=== PATIENT | female | born 1925 | race Caucasian/White ===

== ENCOUNTER 2016-10-27 20:54 | Inpatient (IN) | payer MEDICARE ==
[2016-10-27] MEDS ORDERED: HYDROMORPHONE HCL 0.5 MG/0.5 ML SYRINGE ONE ×2 (22:24→23:56)
[2016-10-27] MEDS ORDERED: ONDANSETRON 4 MG/2ML 2 ML VIAL ONE (22:24)
[2016-10-27 22:58] LABS: ABSOLUTE NEUTROPHIL COUNT 6.3 K/mm3 (1.8-7.7); BASO % 0.5 % (0.2-1.0); EOS # 0.1 (0.0-0.5); EOS % 1.5 % (0.9-2.9); HEMATOCRIT 36.7 % (37.0-47.0); HEMOGLOBIN 12.3 gm/l (12.0-16.0); IMM NEUT% 0.2 % (0-1); LYMPH % 12.6 % (15-45); MEAN CELL VOLUME 95.3 fl (81.0-99.0); MEAN CORPUSCULAR HEMOGLOBIN 31.9 pg (27.0-31.0); MEAN CORPUSCULAR HGB CONC 33.5 g/dl (33.0-37.0); MEAN PLATELET VOLUME 9.9 fl (7.4-10.4); MONO # 0.6 (0.0-0.8); NEUT % 78.2 % (43-75); PLATELET COUNT 160 K/mm3 (130-400); RED CELL DISTRIBUTION WIDTH 12.8 % (11.5-14.5)
[2016-10-27 23:07] LABS: URINE BILIRUBIN NEGATIVE (NEGATIVE); URINE BLOOD NEGATIVE (NEGATIVE); URINE GLUCOSE (UA) NEGATIVE (NEGATIVE); URINE LEUKOCYTE ESTERASE NEGATIVE (NEGATIVE); URINE NITRITE NEGATIVE (NEGATIVE); URINE PROTEIN TRACE (NEGATIVE); URINE UROBILINOGEN NORMAL (0-1 mg/dl)
[2016-10-27 23:10] LABS: URINE APPEARANCE CLEAR; URINE COLOR DARK YELLOW
[2016-10-27 23:16] LABS: ALB/GLOB RATIO 1.6 (>1.0); ALBUMIN 3.8 gm/dL (3.5-5.7); CALCIUM 9.1 mg/dL (8.6-10.3)
[2016-10-27] MEDS ORDERED: SODIUM CHLORIDE 0.9% FLUSH 20 ML ONE (23:57)
[2016-10-27] MEDS ORDERED: MAGNESIUM HYDROXIDE 30 ML UDCUP PO PRN (23:58)
[2016-10-27] MEDS ORDERED: BISACODYL 5 MG TABLET.EC PO PRN (23:58)
[2016-10-27] MEDS ORDERED: MENTHOL/CETYLPYRD 1 EACH LOZENGE PO PRN (23:58)
[2016-10-27] MEDS ORDERED: BISACODYL 10 MG SUP PR PRN (23:58)
[2016-10-27] MEDS ORDERED: BLISTEX LIPSTICK 1 EACH TP PRN (23:58)
[2016-10-27] MEDS ORDERED: SODIUM CHLORIDE 0.9% 100 ML IV PRN (23:58)
[2016-10-28] MEDS ORDERED: HYDROMORPHONE HCL 0.5 MG/0.5 ML SYRINGE IV ONE (00:01)
[2016-10-28 00:16] VITALS: BMI 28.4
[2016-10-28] MEDS ORDERED: ONDANSETRON 4 MG/2ML 2 ML VIAL IV PRN (00:18)
[2016-10-28] MEDS ORDERED: PUMP TUBING ONE (00:26)
[2016-10-28] MEDS: D5 1/2NS with 20 mEq KCL 1,000 ML IV SCH ×2 (00:35→12:21)
[2016-10-28] MEDS: HYDROMORPHONE HCL 1 MG/ML SYRINGE IV PRN ×6 (00:36→21:31)
[2016-10-28 07:01] LABS: HEMATOCRIT 33.6 % (37.0-47.0); HEMOGLOBIN 11.3 gm/l (12.0-16.0); MEAN CELL VOLUME 96.3 fl (81.0-99.0); MEAN CORPUSCULAR HEMOGLOBIN 32.4 pg (27.0-31.0); MEAN CORPUSCULAR HGB CONC 33.6 g/dl (33.0-37.0); RED CELL DISTRIBUTION WIDTH 12.8 % (11.5-14.5)
--- NOTE | 2016-10-28 07:10 | CT ---
HEAD W/O CON History: Ground level fall with confusion. History of dementia. Comparison: None. Procedure: 1 mm axial images were obtained through the head from the vertex to the base of the skull without intravenous contrast. Stacked reconstructed 5 mm images were then obtained in the axial, coronal and sagittal planes. Findings: The lateral ventricles, cerebral sulci and sylvian fissures are prominent. No evidence of midline shift is seen. No mass or mass effect is identified. No evidence of intra or extra-axial fluid collections or hemorrhage is seen. There are periventricular deep white matter low-attenuation changes observed. The basilar cisterns are uneffaced. The posterior fossa structures are unremarkable. There appear to be postsurgical changes of the right ethmoid and maxillary sinuses. No acute osseous abnormalities are visualized. Impression: 1. No findings of acute intracranial hemorrhage. 2. Diffuse cerebral atrophy. 3. Periventricular deep white matter low-attenuation changes most consistent with small vessel ischemia considering patient age. 4. Postsurgical changes involving the right ethmoid and maxillary sinuses. The findings were called to the emergency room at 2209 hours, 10/27/2016, by [facility] radiology.
--- NOTE | 2016-10-28 07:10 | RAD ---
CHEST-AP BEDSIDE HISTORY: Ground-level fall with femur fracture. COMPARISONS: 07/05/2013. FINDINGS: There is evidence of prior median sternotomy. The heart size is normal for technique. No focal infiltrate, effusion or pneumothorax is seen. The hilar and mediastinal structures are stable. IMPRESSION: 1. Prior median sternotomy. 2. No active intrathoracic process.
--- NOTE | 2016-10-28 07:12 | RAD ---
HIP - LEFT 2 VW + AP PELVIS HISTORY: Ground-level fall. COMPARISONS: None. FINDINGS: An AP view of the pelvis was performed with AP and crosstable lateral views of the left hip demonstrating prior pinning of both proximal femurs. The osseous pelvis appears to be grossly intact. The sacrum and sacroiliac joints are unremarkable. Note is made of a spiral fracture of the midportion of the visualized left femur. Atherosclerotic vascular calcification is noted. IMPRESSION: 1. A spiral fracture of the visualized mid left femoral diaphysis. 2. Postsurgical changes of prior pinning of both proximal femurs. 3. Atherosclerotic vascular calcification.
--- NOTE | 2016-10-28 07:13 | RAD ---
FEMUR LEFT HISTORY: Ground-level fall. COMPARISONS: 06/11/2012. FINDINGS: AP and lateral views of the left femur demonstrate evidence of a spiral fracture of the mid to distal femoral diaphysis. There is minimal displacement identified. No significant angulation is observed. The soft tissue structures are appropriate. Atherosclerotic vascular calcification is incidentally seen. IMPRESSION: 1. A minimally displaced spiral fracture of the mid to distal left femoral diaphysis.
--- NOTE | 2016-10-28 07:14 | RAD ---
HUMERUS LEFT HISTORY: Ground level fall with left arm pain. COMPARISONS: None. FINDINGS: 2 views of the left humerus were performed demonstrating grossly intact osseous structures. The proximal and distal joint spaces are well-maintained. The glenohumeral alignment appears to be appropriate. No focal soft tissue abnormalities are seen. IMPRESSION: 1. Negative views of the left humerus.
[2016-10-28 07:15] LABS: INR 1.05
[2016-10-28 07:24] LABS: CALCIUM 8.6 mg/dL (8.6-10.3)
--- NOTE | 2016-10-28 07:24 | HP ---
Elayne Booker [id number] CHIEF COMPLAINT: Leg pain after fall. HISTORY OF PRESENT ILLNESS: The patient is an 89-year-old female who is reported to have fallen down stairs. She was noted to have a femur fracture of the mid shaft. She normally can walk down the [place], but this time was going down the stairs at the assisted living facility at [facility] in [place]. No other significant pain complaints other than the leg at this time. No special reason for the fall identified such as syncope or other obvious cause. PAST MEDICAL HISTORY: Remarkable for dementia although, she talks well and she normally can walk some. She has a history of dyslipidemia on Lipitor, osteopenia on Alendronate, history of vitamin D deficiency on replacement. She has had a prior history of left atrial thrombus/myxoma and was actually transferred to tertiary care facility for surgery. She underwent removal in 2012. She has had a prior history of diastolic congestive heart failure. She also had pulmonary hypertension on an echo back in 2012. She has also had a prolapsed rectum and is seeing a surgeon about this. She self reduces this, but the surgeon had recommended they move to an assisted living facility as the surgeon felt she needed more help at home. PAST SURGICAL HISTORY: Remarkable for left hip open reduction internal fixation 2011, right hip, 2003 sinus surgery and nasal polyp surgery, cataract surgery, coronary artery bypass graft and resection of myxoma and some type of spinal stenosis treatment. ALLERGIES: LISTED ARICEPT WHICH CAUSED NIGHMARES FOR HER. MEDICATIONS: Taken from the list at [facility] show: 1. Acetaminophen 650 mg by mouth every 4 hours as needed. 2. Alendronate 70 mg by mouth weekly. 3. Aspirin 81 mg daily. 4. Atorvastatin 40 mg daily. 5. Bisacodyl 1 by mouth daily as needed. 6. Loperamide 2 mg as needed. 7. Gaviscon or Mylanta 3 mL by mouth every 2 hours as needed. 8. [id number] 30 mL by mouth daily as needed. 9. Metoprolol tartrate 12.5 mg by mouth twice daily. 10. Multivitamin 1 by mouth daily. 11. Sertraline 25 mg at bedtime. 12. Vitamin D 3000 units daily. SOCIAL HISTORY: She is at [facility] for the last two weeks. She was previously at her home by herself [place]. She is . She does not smoke. No alcohol. Identifies at [employer] [facility] [employer]. She is not a . FAMILY HISTORY: Father at 96 of heart disease. Mom at age 80 of dementia. Four kids, one son of myocardial infarction at age 42. REVIEW OF SYSTEMS: Eyes okay, except for glasses. Ears are okay. Nose is okay. She can have come occasional nasal drainage and sniffles. Mouth and teeth are okay. Neck is okay. No breathing complaints. No heart complaints since her surgery. Stomach is okay. No breast complaints. She has had the rectal prolapse. The emergency room had mentioned a possible concern for urinary tract infection and placement of the urinary catheter. She has had no vaginal discharge or complaints. Leg is painful in the thigh on the left. Arms are okay. Memory is poor. She has dementia, but is otherwise conversant and talks well. She has had a previous do not resuscitate order and family concurs with this at this time. PHYSICAL EXAMINATION: GENERAL: Uncomfortable female. VITAL SIGNS: Blood pressure 155/64, respirations 20, pulse 76, temperature 98.6, 96% saturation on room air. HEENT: Head is normocephalic, atraumatic and is nontender to palpation. No bleeding is evident. Eyes are unremarkable. Ears are normal. Nose is normal. Mouth is normal with good dentition. NECK: Nontender. No crepitants noted. LUNGS: Clear to auscultation bilaterally. CHEST: Midline incision. HEART: Regular rate and rhythm without murmur. ABDOMEN: Soft, nontender, nondistended. Bowel sounds are normal. No rebound, no guarding. GENITOURINARY: Riddle in and draining yellow urine. EXTREMITIES: Left thigh is tender and somewhat swollen, she is quite uncomfortable with this. Right is unremarkable. Knees are unremarkable bilaterally. Ankles and feet are normal. Good pulses are noted. Good capillary refill noted. Hands are grossly unremarkable for age. NEUROLOGIC: Dementia shows poor memory, but patient is very conversant. LABORATORY DATA: White count 8.1, hemoglobin 12.3, platelets 160. Sodium 139, potassium 4.2, chloride 105, CO2 25, BUN 31, creatinine 1.2, glucose 128, calcium 9.1. LFT's are normal. Urinalysis specific gravity 1.020, 1+ ketones, otherwise negative. DIAGNOSTICS: EKG 72 beats per minute, right bundle branch block, left anterior fascicular block, QRS is 146 milliseconds, axis -50, QTC 488. Portable chest x-ray shows cardiomegaly, previous sternotomy, but otherwise no acute changes. Humerus on preliminary review appears to be negative without fracture. CT of head shows no intracranial hemorrhage, mass effect, or edema, no acute cortical stroke evidence, periventricular small vessel ischemic changes, paranasal sinus mucosal thickening, evidence of surgical changes on the right nasal turbinate to the ethmoid air cells. Femur shows a oblique mid shaft fracture and a previous pinning of hip bilaterally. ASSESSMENT AND PLAN: 1. Fracture of shaft of left femur, previously ambulatory. Appreciate orthopedic input and anticipate that patient's family and Dr. Johnson would like to proceed with repair. 2. Dementia. Patient had been living semi-independently two week ago. Patient is conversant, but memory appears to be poor. She was able to express that her leg hurts. 3. History of atrial myxoma status post excision with bypass several years ago. We will be checking troponin and a BNP although, she clinically appears to be stable in this regard. 4. History of pulmonary hypertension on previous echocardiogram. No more recent evaluations available since surgery. 5. Previous history of delirium after cardiac surgery. We will try to be cautious with medications. 6. Do not resuscitate status. Reviewed with patient's family today. 7. Venous thrombosis prophylaxis mechanical. 8. History reported of rectal prolapse. We will work to keep stools soft. 9. Osteoporosis. Anticipate follow up as an outpatient. 10. Hypertension. We will continue on metoprolol at this time. JOB: [id number] CC: Dr. Muñoz at [facility] Dr. Johnson
[2016-10-28] MEDS ORDERED: CEFAZOLIN SODIUM 2 GRAM PREMIX 2 G in Premix (D5W) 100 ml 1 EACH IV PRN (08:02)
--- NOTE | 2016-10-28 08:02 | PDOC43 ---
- Subjective Subjective: Reports Pain Tolerable (PT sleeping. Any motion of the patient's left femur is painful), Denies Chest Pain, Denies Shortness of Breath, Denies Nausea, Denies Vomiting - Objective Vital Signs Temperature 98.0 F 10/28/16 03:58 Pulse Rate 72 10/28/16 03:58 Respiratory Rate 18 10/28/16 04:38 Blood Pressure 144/70 10/28/16 03:58 O2 Saturation by Pulse Oximetry 94 10/28/16 03:58 Oxygen Delivery Method Room Air Oxygen Flow Rate 0 Laboratory 10/28/16 06:30 10/28/16 06:30 10/28/16 10/27/16 06:30 22:40 RBC 3.49 L 3.85 L MCH 32.4 H 31.9 H BUN 31 H 31 H Estimated GFR 39 L 42 L B-Natriuretic Peptide 273 H Total Protein 6.2 L Active Medication Orders Category Date Time Status Bisacodyl [Dulcolax] Med 10/27/16 23:58 Active 10 mg ME DAILY PRN Bisacodyl [Dulcolax] Med 10/27/16 23:58 Active 5 mg PO DAILY PRN D5 1/2NS with 20 mEq KCL [D51/2NS with 20 mEq KCL] 1, Med 10/27/16 23:45 Active 000 ml IV 75 mls/hr Docusate Sodium [Colace] Med 10/28/16 09:00 Active 100 mg PO BID Hydromorphone HCl [Dilaudid] Med 10/28/16 00:18 Active 0.5 - 1 mg IV Q2H PRN Lactulose [Enulose] Med 10/29/16 09:00 Active 10 g PO DAILY Lip [place] [Blistex] Med 10/27/16 23:58 Active 1 each TP PRN PRN Magnesium Hydroxide [Milk of Magnesia] Med 10/27/16 23:58 Active 30 ml PO DAILY PRN Menthol/Cetylpyridinium [Cepacol] Med 10/27/16 23:58 Active 1 each PO PRN PRN Metoprolol Tartrate [Lopressor] Med 10/28/16 09:00 Active 12.5 mg PO BID Ondansetron 4 mg/2ml Vial [Zofran] Med 10/28/16 00:18 Active 4 mg IV Q4H PRN Polyethylene Glycol 3350 [Miralax] Med 10/29/16 09:00 Active 17 g PO DAILY Sertraline HCl [Zoloft] Med 10/28/16 21:00 Active 25 mg PO BEDTIME Sodium Chloride 0.9% 100 ml Med 10/27/16 23:58 Active IV PRN Sodium Chloride 0.9% Flush [Normal Saline 10ml Flush] Med 10/28/16 00:01 Active 10 ml IV PRN PRN Sodium Chloride 0.9% Flush [Normal Saline 10ml Flush] Med 10/28/16 09:00 Active 10 ml IV Q8HR Intake and Output 10/26/16 10/27/16 10/28/16 23:59 23:59 23:59 Intake Total 470 Output Total 300 Balance 170 General: Afebrile - Left Lower Extremity Incision: Dressing Clean/Dry/Intact (Tender to touch by mid-shaft of left femur) , Erythema Motor: Extensor Hallucis Longus: 4/5, Tibialis Anterior: 4/5, Gastrocnemius: 4/5 , Peroneals: 4/5 Gross Sensation to Light Touch: Present: Deep Peroneal Nerve, Superficial Peroneal Nerve Capillary Refill: < 3 Seconds - Problems (1) Fracture, femur closed, shaft Status: Acute - Disposition HD#2 s/p admission with a left femoral shaft fracture with possible intra- articular extension NWB on the LLE. Possible surgery later today with a retrograde IMN. Pt may need screws. Waiting to speak with family about plans for surgery. Ancef communication instructor to the OR. Will hold anti-coagulation at this time.
--- NOTE | 2016-10-28 08:57 | CT ---
LOWER EXT W/O CON LT History: Evaluate femur fracture. Comparison: Plain film examination of the same day. Procedure: 1 mm axial images were obtained through the distal left femur without the use of oral or and venous contrast. Stacked reconstructed 3 mm images were then photographed in the axial, coronal and sagittal planes. Findings: Images of the distal femur and knee were obtained demonstrating evidence of a spiral fracture of the distal left femoral diaphysis with minimal displacement of the fracture components. However, there is a vertical component extending along the posterior cortical margin which demonstrates intra-articular extension to the adjacent knee joint centrally. An additional oblique component extends through the posterior margin of the lateral femoral condyle. There is a knee joint effusion identified. Atherosclerotic vascular calcification is noted as well. Impression: 1. A minimally displaced spiral distal left femoral diaphyseal fracture with a vertical intra-articular component extending to the central aspect of the knee joint along the posterior cortical margin, as well as an oblique distal component extending to the periphery of the lateral femoral condyle.
[2016-10-28] MEDS: DOCUSATE SODIUM 100 MG CAPSULE PO SCH ×2 (09:41→21:31)
[2016-10-28] MEDS: METOPROLOL TARTRATE 25 MG TABLET PO SCH ×2 (09:41→21:31)
--- NOTE | 2016-10-28 12:24 | PDOC43 ---
- Subjective Chief Complaint: fall with left femur fracture Patient lying comfortably at initiation of conversation she became extremely anxious, would hold her breath and says that she 'has been abandoned'. Has pain if she moves. She cannot recall the fall or events that brought her to the hospital. Subjective: Reports Pain Tolerable, Reports Other (patient not oriented to trust history) - Objective Vital Signs Temperature 98.0 F 10/28/16 11:17 Pulse Rate 76 10/28/16 11:17 Respiratory Rate 20 10/28/16 11:17 Blood Pressure 118/58 10/28/16 11:17 O2 Saturation by Pulse Oximetry 98 10/28/16 11:32 Oxygen Delivery Method Nasal Cannula Oxygen Flow Rate 2 Intake and Output 10/26/16 10/27/16 10/28/16 23:59 23:59 23:59 Intake Total 470 Output Total 300 Balance 170 General: Alert, Cooperative, Acute Distress, Other (anxious) HEENT: Atraumatic, Other (mucus membranes dry) Lungs: Clear to Auscultation Bilaterally, Normal Air Movement Cardiovascular: Regular Rate and Rhythm, Normal S1, Normal S2 Abdomen: Soft, Non-Distended, No Rigid, No Tenderness, No Rebounding Extremities: Cyanosis, Edema, Tenderness Neurological: Normal Speech Psych/Mental Status: Anxious Laboratory 10/28/16 06:30 10/28/16 06:30 10/28/16 10/27/16 06:30 22:40 RBC 3.49 L 3.85 L MCH 32.4 H 31.9 H BUN 31 H 31 H Estimated GFR 39 L 42 L B-Natriuretic Peptide 273 H Total Protein 6.2 L Current Medications: Current meds reviewed in EMR. - Problems: Assessment/Plan (1) Fracture, femur closed, shaft Qualifiers: Encounter type: initial encounter Fracture morphology: oblique Fracture alignment: nondisplaced Laterality: left Qualifier Code: ( S72.335A) Nondisplaced oblique fracture of shaft of left femur, initial encounter for closed fracture Status: Acute Assessment/Plan: Appreciate ortho's management. Pinning in OR today (2) Dementia Qualifiers: Dementia type: Alzheimer's disease Alzheimer's disease onset: unspecified onset Status: Acute Assessment/Plan: unknown if behavioral disturbances as patient new to us and highly anxious at this time. Will monitor closely (3) HLD (hyperlipidemia) Qualifiers: Hyperlipidemia type: mixed hyperlipidemia Qualifier Code: (E78.2) Mixed hyperlipidemia Status: Chronic Assessment/Plan: stable (4) Osteopenia Qualifiers: Osteopenia location: multiple sites Qualifier Code: (M85.89) Other specified disorders of bone density and structure, multiple sites Status: Chronic Assessment/Plan: contributing to fragility (5) Diastolic CHF Qualifiers: Congestive heart failure chronicity: chronic Qualifier Code: (I50.32) Chronic diastolic (congestive) heart failure Status: Chronic Assessment/Plan: slight bump of BNP on presentation, unknown if baseline. Monitor, continue medications (6) Pulmonary hypertension Status: Chronic Assessment/Plan: stable, monitor
[2016-10-28] MEDS ORDERED: QUETIAPINE FUMARATE 25 MG TABLET PO ONE (13:16)
[2016-10-28] MEDS ORDERED: LORAZEPAM 2 MG/ML 1ML SDV IV ONE ×2 (16:24→23:15)
[2016-10-28] MEDS ORDERED: SERTRALINE HCL 50 MG TABLET PO SCH (21:00)
[2016-10-28] MEDS: QUETIAPINE FUMARATE 25 MG TABLET PO SCH (23:03)
[2016-10-29] MEDS: QUETIAPINE FUMARATE 25 MG TABLET PO SCH ×2 (00:12→02:59)
[2016-10-29] MEDS: HYDROMORPHONE HCL 1 MG/ML SYRINGE IV PRN (02:58)
[2016-10-29] MEDS: D5 1/2NS with 20 mEq KCL 1,000 ML IV SCH (04:11)
[2016-10-29] MEDS ORDERED: LACTATED RINGERS 1,000 ML ONE (06:27)
[2016-10-29 06:50] LABS: BASO % 0.5 % (0.2-1.0); EOS # 0.2 (0.0-0.5); EOS % 2.7 % (0.9-2.9); HEMATOCRIT 29.5 % (37.0-47.0); HEMOGLOBIN 9.8 gm/l (12.0-16.0); IMM NEUT% 0.2 % (0-1); LYMPH # 1.3 (1.0-4.8); LYMPH % 15.2 % (15-45); MEAN CELL VOLUME 96.7 fl (81.0-99.0); MEAN CORPUSCULAR HEMOGLOBIN 32.1 pg (27.0-31.0); MEAN CORPUSCULAR HGB CONC 33.2 g/dl (33.0-37.0); MEAN PLATELET VOLUME 9.8 fl (7.4-10.4); MONO # 0.9 (0.0-0.8); MONO % 10.5 % (4-12); NEUT % 70.9 % (43-75); PLATELET COUNT 116 K/mm3 (130-400); RED CELL DISTRIBUTION WIDTH 12.8 % (11.5-14.5)
[2016-10-29] MEDS ORDERED: FENTANYL 100 MCG/2 ML VIAL ONE (07:14)
[2016-10-29 07:15] LABS: CALCIUM 8.2 mg/dL (8.6-10.3)
--- NOTE | 2016-10-29 07:26 | PDOC43 ---
- Subjective Subjective: Reports Pain Tolerable (Pt has a pain with any left leg motion), Denies Chest Pain, Denies Shortness of Breath, Denies Nausea, Denies Vomiting, Denies Fever - Objective Vital Signs Temperature 99.2 F 10/29/16 03:04 Pulse Rate 64 10/29/16 03:04 Respiratory Rate 18 10/29/16 04:26 Blood Pressure 135/56 10/29/16 03:04 O2 Saturation by Pulse Oximetry 100 10/29/16 03:04 Oxygen Delivery Method Nasal Cannula Oxygen Flow Rate 2 Laboratory 10/29/16 06:40 10/29/16 06:40 10/29/16 10/28/16 06:40 06:30 RBC 3.05 L MCH 32.1 H Anion Gap 7 L BUN 31 H Estimated GFR 47 L 39 L Calcium 8.2 L Active Medication Orders Category Date Time Status Bisacodyl [Dulcolax] Med 10/27/16 23:58 Active 10 mg RI DAILY PRN Bisacodyl [Dulcolax] Med 10/27/16 23:58 Active 5 mg PO DAILY PRN Cefazolin Sodium 2 Gram Premix [Ancef 2 Gram Premix] 2 Med 10/28/16 08:02 Active g Premix (D5W) 100 ml 1 each IV ON HOLD TO OR D5 1/2NS with 20 mEq KCL [D51/2NS with 20 mEq KCL] 1, Med 10/27/16 23:45 Active 000 ml IV 75 mls/hr Docusate Sodium [Colace] Med 10/28/16 09:00 Active 100 mg PO BID Hydromorphone HCl [Dilaudid] Med 10/28/16 00:18 Active 0.5 - 1 mg IV Q2H PRN Lactulose [Enulose] Med 10/29/16 09:00 Active 10 g PO DAILY Lip [place] [Blistex] Med 10/27/16 23:58 Active 1 each TP PRN PRN Magnesium Hydroxide [Milk of Magnesia] Med 10/27/16 23:58 Active 30 ml PO DAILY PRN Menthol/Cetylpyridinium [Cepacol] Med 10/27/16 23:58 Active 1 each PO PRN PRN Metoprolol Tartrate [Lopressor] Med 10/28/16 09:00 Active 12.5 mg PO BID Ondansetron 4 mg/2ml Vial [Zofran] Med 10/28/16 00:18 Active 4 mg IV Q4H PRN Polyethylene Glycol 3350 [Miralax] Med 10/29/16 09:00 Active 17 g PO DAILY Quetiapine Fumarate [Seroquel] Med 10/28/16 21:00 Active 12.5 - 25 mg PO BEDTIME Sertraline HCl [Zoloft] Med 10/28/16 21:00 Active 25 mg PO BEDTIME Sodium Chloride 0.9% 100 ml Med 10/27/16 23:58 Active IV PRN Sodium Chloride 0.9% Flush [Normal Saline 10ml Flush] Med 10/28/16 00:01 Active 10 ml IV PRN PRN Sodium Chloride 0.9% Flush [Normal Saline 10ml Flush] Med 10/28/16 09:00 Active 10 ml IV Q8HR Intake and Output 10/27/16 10/28/16 10/29/16 23:59 23:59 23:59 Intake Total 1323 1032 Output Total 550 235 Balance 773 797 General: Afebrile - Left Lower Extremity Motor: Extensor Hallucis Longus: 4/5, Tibialis Anterior: 4/5, Gastrocnemius: 4/5 Gross Sensation to Light Touch: Present: Deep Peroneal Nerve, Superficial Peroneal Nerve Capillary Refill: < 3 Seconds (Pt has pain with any left leg motion) - Problems (1) Fracture, femur closed, shaft Qualifiers: Encounter type: initial encounter Fracture morphology: oblique Fracture alignment: nondisplaced Laterality: left Qualifier Code: ( S72.335A) Nondisplaced oblique fracture of shaft of left femur, initial encounter for closed fracture Status: Acute - Disposition HD#3 s/p admission with a left femoral shaft fracture with possible intra- articular extension NWB on the LLE. Surgery today with veda-articular plate. Did speak with patient and family about surgery. Ancef long term care pharmacist to the OR. Will hold anti-coagulation at this time.
[2016-10-29] MEDS ORDERED: MIDAZOLAM HCL 1 MG/ML 2ML VIAL ONE ×2 (07:37→09:45)
[2016-10-29] MEDS ORDERED: CEFAZOLIN SODIUM 1,000 MG VIAL ONE (08:30)
[2016-10-29] MEDS ORDERED: BUPIVACAINE 0.75% SPINAL AMPUL 2 ML ONE (08:30)
[2016-10-29] MEDS ORDERED: SPINAL PROCEDURAL TRAY 1 EACH ONE (08:30)
[2016-10-29] MEDS ORDERED: LACTULOSE 20 G/30 ML UDCUP PO SCH (09:00)
[2016-10-29] MEDS ORDERED: POLYETHYLENE GLYCOL 3350 17 G POWD.SUSP PO SCH (09:00)
[2016-10-29] MEDS ORDERED: MIDAZOLAM HCL 5 MG/5 ML VIAL ONE (09:51)
[2016-10-29] MEDS ORDERED: NALOXONE HCL 0.4 MG/ML VIAL IV PRN (10:37)
[2016-10-29] MEDS ORDERED: ATROPINE SULFATE 0.4 MG/1 ML VIAL IV PRN (10:37)
[2016-10-29] MEDS ORDERED: MEPERIDINE 25 MG/ML SYRINGE IV PRN (10:37)
[2016-10-29] MEDS ORDERED: ONDANSETRON 4 MG/2ML 2 ML VIAL IV PRN ×3 (10:37→14:09)
[2016-10-29] MEDS ORDERED: MORPHINE SULFATE 4 MG/ML SYRINGE IV PRN ×2 (10:37→12:25)
[2016-10-29] MEDS ORDERED: LABETALOL HCL 5 MG/ML 20ML VIAL IV PRN (10:37)
[2016-10-29] MEDS ORDERED: PROMETHAZINE HCL 25 MG/ML VIAL IM PRN (10:37)
[2016-10-29] MEDS ORDERED: LACTATED RINGERS 1,000 ML IV SCH ×2 (10:45→12:06)
--- NOTE | 2016-10-29 11:14 | RAD ---
FEMUR LEFT HISTORY: Intraoperative fluoroscopy for ORIF COMPARISONS: CT lower extremity without contrast 10/28/2016 and plain films dating back to 617 FINDINGS: 8 overhead fluoroscopic images are provided for review. These images demonstrate intramedullary patricia placement with screw fixation across the patient's known femoral fracture. Study is limited with respect osseous detail given fluoroscopic technique. Fluoroscopy time: 224.4 seconds IMPRESSION: Intraoperative fluoroscopy for ORIF as above. Please see orthopedist note regarding the procedure for further details.
--- NOTE | 2016-10-29 11:23 | PCMBPN ---
Brief Post Op Note: Date of Procedure: 10/29/16 Preoperative Diagnosis: 1. left femoral shaft fracture with intra-articular extension Postoperative Diagnosis: 1. [Same] Procedure: left femoral shaft fracture with intra-articular extension ORIF with placement of a retrograde intramedullary nail Surgeon: Giovanni Johnson MD Assist: Zack MÁRQUEZ Anesthesia: Spinal Findings:Pt had a 1 x 3.5mm 75mm placed lateral to medial with a washer. placed a dean and nephew 34 x 11.5 retrograde nail placing 3 distal locking screws through the nail and 2 screws proximally 30mm and 35mm Condition: stable vitals, transferred to pacu Complications: None IV Fluids: 1600 mLs of LR Urine Output: mLs Estimated Blood Loss: 300 mLs Tourniquet Time: [N/A] Specimens: [N/A] Implants: Dean and Nephew retrograde nail Drains: [N/A] PLAN: Partial weighbearing on the right lower extremity with chai brace locked in extension for transfers. Ancef x 24 hours post-op. Lovenox for DVT prophylaxis. Will see if patient will use CPM post-op.
[2016-10-29] MEDS ORDERED: MORPHINE SULFATE 4 MG/ML SYRINGE ONE (11:31)
--- NOTE | 2016-10-29 11:56 | RAD ---
FEMUR LEFT, KNEE LEFT 1 OR 2 VIEWS HISTORY: Postop ORIF. COMPARISONS: Intraoperative films earlier on the same day and plain films dating back to 617 FINDINGS: AP and lateral views of the left femur with AP and lateral views of the left knee are obtained. Intramedullary patricia with screw placement is noted across the mid shaft femoral fracture. 3 partially threaded screws transfix the patient's femoral neck fracture. Hardware is intact without signs of failure or loosening. No new fracture or dislocation is noted. Limited assessment of the pelvis and hip are unremarkable. Overlying bandaging does limit assessment. Vascular calcifications are present. IMPRESSION: Satisfactory postoperative exam.
[2016-10-29] MEDS ORDERED: CALCIUM CARBONATE 500 MG TAB.CHEW PO PRN (12:06)
[2016-10-29] MEDS ORDERED: MORPHINE SULFATE 2 MG/ML SYRINGE IV PRN (12:06)
[2016-10-29] MEDS ORDERED: OXYCODONE HCL 5 MG TABLET PO PRN (12:06)
--- NOTE | 2016-10-29 14:17 | PDOC43 ---
- Subjective Chief Complaint: fall with left femur fracture Seen post-op at 1330. Somnolent but wakes enough to say she is in no pain. - Objective Vital Signs Temperature 98.8 F 10/29/16 13:13 Pulse Rate 91 10/29/16 13:13 Respiratory Rate 18 10/29/16 13:13 Blood Pressure 140/58 10/29/16 13:13 O2 Saturation by Pulse Oximetry 99 10/29/16 13:13 Oxygen Delivery Method Nasal Cannula Oxygen Flow Rate 3 Intake and Output 10/28/16 10/29/16 10/30/16 06:59 06:59 06:59 Intake Total 470 1885 Output Total 300 485 Balance 170 1400 General: No Acute Distress HEENT: Mucous membr. moist/pink Lungs: Other (course anteriorally) Cardiovascular: Regular Rate and Rhythm, Murmur (10/27) Abdomen: Soft, Normal Bowel Sounds, No Tenderness, No Masses Extremities: Normal Pulses, No Edema Skin: Normal Color Neurological: Other (sleeping) Laboratory 10/29/16 06:40 10/29/16 06:40 10/29/16 06:40 RBC 3.05 L MCH 32.1 H Anion Gap 7 L Estimated GFR 47 L Calcium 8.2 L Crossmatch See Detail Current Medications: Current meds reviewed in EMR. - Problems: Assessment/Plan (1) Fracture, femur closed, shaft Qualifiers: Encounter type: initial encounter Fracture morphology: oblique Fracture alignment: nondisplaced Laterality: left Qualifier Code: ( S72.335A) Nondisplaced oblique fracture of shaft of left femur, initial encounter for closed fracture Status: AcuteAssessment/Plan: S/P repair in OR 10/29/16. Care per orthopedics. (2) Acute blood loss anemia Status: AcuteAssessment/Plan: Due to fracture and expected to increase with surgery. Follow and transfuse if symptomatic. 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 (4) Diastolic CHF Qualifiers: Congestive heart failure chronicity: chronic Qualifier Code: (I50.32) Chronic diastolic (congestive) heart failure Status: ChronicAssessment/Plan : Chronic diagnosis associated with pulmonary HTN. (not [place]). Not on diuretics at home, follow closely and decrease fluid infusion. Suspect the single documented saturation of 83% was an error as it was two minutes after a normal saturation of 92% on Room Air. (5) Osteopenia Qualifiers: Osteopenia location: multiple sites Qualifier Code: (M85.89) Other specified disorders of bone density and structure, multiple sites Status: ChronicAssessment/Plan: With fragility fracture gives her the diagnosis of osteoporosis. Start Ca/Vit D , resume Alendronate (6) HLD (hyperlipidemia) Qualifiers: Hyperlipidemia type: mixed hyperlipidemia Qualifier Code: (E78.2) Mixed hyperlipidemia Status: ChronicAssessment/Plan: stable (7) CKD (chronic kidney disease) stage 3, GFR 30-59 ml/min Status: ChronicAssessment/Plan: stable, follow. (8) HTN (hypertension) Qualifiers: Hypertension type: essential hypertension Qualifier Code: (I10) Essential (primary) hypertension Status: ChronicAssessment/Plan: Well controlled, resume metoprolol. VTE Prophylaxis: Enoxaparin and mechanical Disposition: Likely SNF rehab in 2-3 days
[2016-10-29] MEDS: CALCIUM CARBONATE 600 MG/VITAMIN D3 400 UNIT/TABLET PO SCH ×2 (15:47→21:19)
[2016-10-29] MEDS: ACETAMINOPHEN 500 MG TABLET PO SCH ×3 (15:47→23:28)
[2016-10-29] MEDS: CEFAZOLIN SODIUM 2 GRAM DUPLEX 2 G in Premix (D5W) 50 ml 1 EACH IV SCH (16:15)
[2016-10-29] MEDS: MORPHINE SULFATE 2 MG/ML SYRINGE IV PRN ×3 (18:20→23:28)
[2016-10-29] MEDS: METOPROLOL TARTRATE 25 MG TABLET PO SCH ×2 (18:51→21:20)
[2016-10-29] MEDS: DOCUSATE SODIUM 100 MG CAPSULE PO SCH ×2 (18:51→21:19)
[2016-10-29] MEDS: SERTRALINE HCL 50 MG TABLET PO SCH (21:19)
[2016-10-29] MEDS: ASCORBIC ACID 500 MG TABLET PO SCH (21:19)
[2016-10-29] MEDS: OXYCODONE HCL 5 MG TABLET PO PRN (21:28)
[2016-10-30] MEDS: CEFAZOLIN SODIUM 2 GRAM DUPLEX 2 G in Premix (D5W) 50 ml 1 EACH IV SCH (00:04)
[2016-10-30] MEDS: MORPHINE SULFATE 2 MG/ML SYRINGE IV PRN ×5 (01:30→21:42)
[2016-10-30] MEDS: ACETAMINOPHEN 500 MG TABLET PO SCH ×3 (05:28→19:12)
[2016-10-30 06:32] LABS: HEMATOCRIT 26.9 % (37.0-47.0); HEMOGLOBIN 9.1 gm/l (12.0-16.0); MEAN CELL VOLUME 95.1 fl (81.0-99.0); MEAN CORPUSCULAR HEMOGLOBIN 32.2 pg (27.0-31.0); MEAN CORPUSCULAR HGB CONC 33.8 g/dl (33.0-37.0); RED CELL DISTRIBUTION WIDTH 12.7 % (11.5-14.5)
[2016-10-30 06:53] LABS: CALCIUM 8.2 mg/dL (8.6-10.3)
[2016-10-30] MEDS: CALCIUM CARBONATE 600 MG/VITAMIN D3 400 UNIT/TABLET PO SCH ×3 (09:34→20:38)
[2016-10-30] MEDS: ENOXAPARIN SODIUM 40 MG/0.4 ML SYRINGE SUB-Q SCH (09:34)
[2016-10-30] MEDS: VITAMIN D3 1,000 UNITS CAP.LIQ PO SCH (09:34)
[2016-10-30] MEDS: METOPROLOL TARTRATE 25 MG TABLET PO SCH ×2 (09:35→20:38)
[2016-10-30] MEDS: ATORVASTATIN CALCIUM 40 MG TABLET PO SCH (09:35)
[2016-10-30] MEDS: ASCORBIC ACID 500 MG TABLET PO SCH ×2 (09:35→20:38)
[2016-10-30] MEDS: MULTIVITAMINS 1 TAB TABLET PO SCH (09:35)
[2016-10-30] MEDS: OXYCODONE HCL 5 MG TABLET PO PRN ×3 (09:39→20:38)
[2016-10-30] MEDS: DOCUSATE SODIUM 100 MG CAPSULE PO SCH ×2 (10:42→20:39)
--- NOTE | 2016-10-30 13:24 | PDOC43 ---
- Subjective Chief Complaint: fall with left femur fracture Sleeping in chair after lunch. No reported c/o. - Objective Vital Signs Temperature 97.5 F 10/30/16 13:01 Pulse Rate 59 10/30/16 13:01 Respiratory Rate 17 10/30/16 13:01 Blood Pressure 123/52 10/30/16 13:01 O2 Saturation by Pulse Oximetry 91 10/30/16 13:01 Oxygen Delivery Method Room Air Oxygen Flow Rate 0 Intake and Output 10/29/16 10/30/16 10/31/16 06:59 06:59 06:59 Intake Total 1885 3757 Output Total 485 1375 Balance 1400 2382 General: No Acute Distress HEENT: Mucous membr. moist/pink Lungs: Clear to Auscultation Bilaterally Cardiovascular: Regular Rate and Rhythm Abdomen: Soft, Normal Bowel Sounds, No Tenderness, No Masses Extremities: Normal Pulses, No Edema Skin: Normal Color Laboratory 10/30/16 05:30 10/30/16 05:30 10/30/16 05:30 RBC 2.83 L MCH 32.2 H Estimated GFR 52 L Calcium 8.2 L Current Medications: Current meds reviewed in EMR. - Problems: Assessment/Plan (1) Fracture, femur closed, shaft Qualifiers: Encounter type: initial encounter Fracture morphology: oblique Fracture alignment: nondisplaced Laterality: left Qualifier Code: ( S72.335A) Nondisplaced oblique fracture of shaft of left femur, initial encounter for closed fracture Status: AcuteAssessment/Plan: S/P repair in OR 10/29/16. Care per orthopedics. (2) Acute blood loss anemia Status: AcuteAssessment/Plan: Due to fracture and expected to increase with surgery. Follow and transfuse if symptomatic. 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 (4) Diastolic CHF Qualifiers: Congestive heart failure chronicity: chronic Qualifier Code: (I50.32) Chronic diastolic (congestive) heart failure Status: ChronicAssessment/Plan : Chronic diagnosis associated with pulmonary HTN. (not [place]). Not on diuretics at home, follow closely and decrease fluid infusion. Suspect the single documented saturation of 83% was an error as it was two minutes after a normal saturation of 92% on Room Air. (5) Osteopenia Qualifiers: Osteopenia location: multiple sites Qualifier Code: (M85.89) Other specified disorders of bone density and structure, multiple sites Status: ChronicAssessment/Plan: With fragility fracture gives her the diagnosis of osteoporosis. Start Ca/Vit D , resume Alendronate (6) HLD (hyperlipidemia) Qualifiers: Hyperlipidemia type: mixed hyperlipidemia Qualifier Code: (E78.2) Mixed hyperlipidemia Status: ChronicAssessment/Plan: stable (7) CKD (chronic kidney disease) stage 3, GFR 30-59 ml/min Status: ChronicAssessment/Plan: stable, follow. (8) HTN (hypertension) Qualifiers: Hypertension type: essential hypertension Qualifier Code: (I10) Essential (primary) hypertension Status: ChronicAssessment/Plan: Well controlled, resume metoprolol. VTE Prophylaxis: Enoxaparin and mechanical Disposition: Likely SNF rehab in 2-3 days
--- NOTE | 2016-10-30 15:48 | OP ---
Elayne RANGEL : 1925 [id number] DATE OF PROCEDURE: October 29, 2016 PREOPERATIVE DIAGNOSES: Left femoral shaft fracture with intra-articular extension and intercondylar distal femoral split. POSTOPERATIVE DIAGNOSES: Left femoral shaft fracture with intra-articular extension and intercondylar distal femoral split. PROCEDURE: LEFT FEMORAL SHAFT FRACTURE WITH INTRA-ARTICULAR EXTENSION OPEN REDUCTION INTERNAL FIXATION WITH PLACEMENT OF A RETROGRADE INTRAMEDULLARY NAIL, AND PERCUTANEOUS FIXATION OF THE DISTAL FEMORAL INTERCONDYLAR DISTAL FEMORAL SPLIT. SURGEON: Giovanni Johnson M.D. INFORMATION SYSTEMS SECURITY DEVELOPER: Jorge Dixon P.A.-C. ANESTHESIA: Spinal. FINDINGS: The patient had a complicated fracture secondary to her intra-articular extension. This required a percutaneous fixation of this distal femoral split with a 3.5 mm 75 mm screw lag screw placed from lateral to medial, with the clamped in place I elected to place a 11.5mm x 34 cm retrograde intramedullary nail. This is a [employer] nail and two proximal screws. These were length 30 and 35 mm. CONDITION: Stable. The patient was transferred to the PACU with stable vital signs. COMPLICATIONS: None. INTRAVENOUS FLUIDS: 3100 mL of Lactated Ringer's. URINE OUTPUT: 100 mL ESTIMATED BLOOD LOSS: 300 mL SPECIMENS: N/A TOURNIQUET TIME: N/A IMPLANTS: The patient had one synthes 3.5 mm lag screw along with a [employer] retrograde nail measuring 34cm x 11.5mm. DRAINS: N/A PLAN: The patient will be partial weight bearing with the right lower extremity with the [place] brace locked in extension for transfers. IF she cannot tolerate these precautions, then she can be WBAT on the RLE. We will give her Ancef for 24 hours postoperatively, Lovenox for DVT prophylaxis and we will see if the patient can cooperate for using the CPM to help with the range of motion. INDICATIONS: The patient is an 89-year-old female with signs and symptoms consistent with femoral shaft fracture with intra-articular extension secondary to a fall. Because of the patient's baseline dementia, the patient's history as well as consent was done by her son who is her son who is her other healthcare proxy. I spoke to him about a number of different problems presented by the surgery. Because of her intra-articular fracture I told her that I may be able to place screws across her distal femur, however this may require a plating of the entire femur versus placing a nail. I told him that this decision would be made intra-articularly based on the status of her fracture and whether her bone quality would allow a nailing. I told him that my preference would be to place a nail, however I do worry about her compliance after surgery and would like to limit her weight bearing if that is possible. I talked to her about some of the risks in doing surgery with her age such as her risk of infection, bleeding, persistent pain, the fracture fixation failing, need for future surgery, stroke, myocardial infarction and even . They state that they understand these risks and were ready to begin. I told them that it is very common for an elderly person to be confused, after surgery, especially in the new environment. They understand this and are willing to accept for the surgery. PROCEDURE DESCRIPTION: After signing the consent form I signed, the patient's left leg with my initials and the word "yes." I spoke to the patient's family who makes medical decisions for her. After this, we were ready to bring her back to the operating room theater. The patient was brought from the preoperative area to the operating theater where she was placed on her side and the anesthesia team administered a spinal without difficulty or complication. Next, with spinal placed she was transferred to a radiolucent pain table and the patient having bump placed underneath her left hip so that her patella was facing the ceiling and not in external rotation. The patient then received some intravenous sedation. Next, we brought the C-arm in from side of the body to confirm that we could get appropriate x-rays of the of the intra-articular space as well as the fracture and proximally in the leg. The left lower extremity was then prepped and draped in sterile fashion, first with a chlorhexidine scrub and then paint. Drapes were used, splits were used proximally to drape out the groin. With the drapes in place we performed our final time out confirming that the left side was the correct side. I confirmed that we had all of the necessary equipment, this included in the retrograde intramedullary nail as well as a distal femoral locking plate in case the patient had more comminution and did require plating of the femur. I confirmed that 2 g of Ancef had been given to the patient and we were ready to begin. At this point I examined the knee closely on the intra-articular space. I elected to make a small percutaneous incision just posterior to the epicondyle and placed a clamp, compressing the condylar split fracture. This was difficult to see this fracture since it was a nondisplaced split. I elected to place a 3.5 screw across the distal aspect of the femur with a washer. I drilled across this and then placed a 75 mm 3.5 mm screw with a washer. This was placed without complications. At this point I again re-examined the articular space. I did appear to have space to place the second screw however the fracture itself appeared to be fairly stable leaving the large clamp in place. I then made preparations to attempt a retrograde intramedullary nail. To do this I made a medial peripatellar incision just off the medial border of the patellar tendon. To do this I made a 3 centimeter skin incision using this is a mobile window. I then made a knee arthrotomy and using my Bovie cautery through the fascia, identifying the fat pad and then placing an [place] protecting my patellar tendon. At this point I obtained the appropriate starting portal on the AP and lateral using Blumensaat's lines a reference. I then used a guide pin and proceeded to ream up first with starter reamer then preceding by 0.5 millimeter increments starting at 9 mm. I first obtained some chatter at 12 mm and determined that I would use an 11.5 mm nail. Prior to doing this I measured on the AP and lateral the length of my nail. If I extended the nail all the way to the proximal screw I thought that I could place 36 mm nail but to add some flexibility I elected to use the 34 mm nail that was 11.5. I reamed up to 13 where I did have mid-diaphyseal chatter. My mortgage assistant Jules Vasquez assembled the nail on the back table. I inspected the nail myself and thought that it was assembled appropriately. The nail was placed without complication into the femur. I checked on the distal as well as proximal end that it was an appropriate position. Then using the locking jig we placed three nail screws through the nail itself. Both oblique screws were used as well as a medial collateral screwed. This screw was slightly proud with screw had on the medial side however I wanted another piece of fixation going across the intra-articular fracture line of the distal femur and thought that this would be acceptable. With the distal screws in place, I again checked the fracture which was stable and in good position and then using the fluoroscopic perfect [place] technique proximally. I placed two proximal screws, the most proximal was 35 mm, the second most proximal was 30 mm. I checked both in the AP and lateral plane that this was appropriate. I then removed the jig, took the knee through a range of motion and I was happy that the nail was not proud in the intra-articular joint space. The knee was then irrigated. I then with final C-arm images obtained I was ready to close. The incisions were closed with interrupted #0, interrupted #2-0 Vicryls and lisa. The patient had good pain control throughout the case. She was transferred to the regular table and transferred to a regular operating room bed. Postoperatively our plan will be to be partial weight-bearing on the right lower extremity with the [place] brace locked in extension. This is mainly due to the fact that the patient has a posterior lateral condyle fracture which is a sheer fracture. I have some concerns about the patient's ability to maintain her precautions. If she cannot follow these precautions then I will allow her to be WBAT on the LLE. We will attempt to have the patient use a CPM to work on her left knee range of motion. She has no limitations in terms of range of motion at this time. In terms of the pain control we will give her oxycodone as well as morphine using Lovenox for DVT prophylaxis and we will plan on checking labs in the morning. Job [id number] CC: [facility]
[2016-10-30] MEDS: SERTRALINE HCL 50 MG TABLET PO SCH (20:38)
[2016-10-30] MEDS ORDERED: MORPHINE SULFATE 2 MG/ML SYRINGE IV PRN (22:52)
--- NOTE | 2016-10-30 22:57 | PDOC43 ---
- Subjective Subjective: Denies Pain Tolerable (Patient could not clearly tell me if she was in pain or not. Pt is agitated and confused.) - Objective Vital Signs Temperature 97.5 F 10/30/16 19:46 Pulse Rate 70 10/30/16 19:46 Respiratory Rate 18 10/30/16 19:46 Blood Pressure 135/56 10/30/16 19:46 O2 Saturation by Pulse Oximetry 94 10/30/16 19:46 Oxygen Delivery Method Room Air Oxygen Flow Rate 0 Laboratory 10/30/16 05:30 10/30/16 05:30 10/30/16 05:30 RBC 2.83 L MCH 32.2 H Estimated GFR 52 L Calcium 8.2 L Active Medication Orders Category Date Time Status Acetaminophen [Tylenol] Med 10/29/16 12:06 Active 1,000 mg PO Q6H Alendronate Sodium [Fosamax] Med 10/30/16 07:00 Pending 70 mg PO Q7D Ascorbic Acid [Vitamin C] Med 10/29/16 21:00 Active 500 mg PO BID Atorvastatin Calcium [Lipitor] Med 10/30/16 09:00 Active 40 mg PO DAILY Calcium Carbonate [Tums] Med 10/29/16 12:06 Active 1,000 - 2,000 mg PO Q2H PRN Calcium Carbonate/Vitamin D3 Med 10/29/16 15:00 Active 1 each PO TID Docusate Sodium [Colace] Med 10/29/16 21:00 Active 100 mg PO BID Enoxaparin Sodium [Lovenox] Med 10/30/16 09:50 Active 40 mg SUB-Q Q24H Magnesium Hydroxide [Milk of Magnesia] Med 10/30/16 11:46 Active 30 ml PO DAILY PRN Metoprolol Tartrate [Lopressor] Med 10/29/16 21:00 Active 12.5 mg PO BID Morphine Sulfate Med 10/30/16 22:52 Ordered 2 - 4 mg IV Q4H PRN Multivitamins [One-A-Day] Med 10/30/16 09:00 Active 1 tab PO DAILY Ondansetron 4 mg/2ml Vial [Zofran] Med 10/29/16 14:09 Active 4 mg IV Q6H PRN Oxycodone HCl [Roxicodone] Med 10/29/16 14:09 Active 2.5 - 5 mg PO Q4H PRN Sertraline HCl [Zoloft] Med 10/29/16 21:00 Active 25 mg PO BEDTIME Sodium Chloride 0.9% Flush [Normal Saline 10ml Flush] Med 10/29/16 12:06 Active 10 - 50 ml IV PRN PRN Sodium Chloride 0.9% Flush [Normal Saline 10ml Flush] Med 10/29/16 17:00 Active 10 ml IV Q8HR Vitamin D3 Med 10/30/16 09:00 Active 1,000 units PO DAILY Intake and Output 10/28/16 10/29/16 10/30/16 23:59 23:59 23:59 Intake Total 1323 4532 457 Output Total 550 1060 900 Balance 775 1759 -898 General: Afebrile - Left Lower Extremity Incision: Dressing Clean/Dry/Intact, Well Approximated, Gretchen Intact, No Drainage, No Erythema (PT is keeping her left knee flexed and not cooperating with my exam) - Problems (1) Fracture, femur closed, shaft Qualifiers: Encounter type: initial encounter Fracture morphology: oblique Fracture alignment: nondisplaced Laterality: left Qualifier Code: ( S72.335A) Nondisplaced oblique fracture of shaft of left femur, initial encounter for closed fracture Status: Acute - Disposition POD#1 s/p left femoral retrograde IMN for a femoral shaft with distal intra- articular extension WBAT with chai brace locked in extension. Lovenox for DVT PT to get up with PT and OT. Due to dementia baseline pain is hard to assess APpreciate medicine's input with this patient will check labs in the morning
[2016-10-31] MEDS ORDERED: MORPHINE SULFATE 2 MG/ML SYRINGE ONE ×3 (00:09→13:08)
[2016-10-31] MEDS: ACETAMINOPHEN 500 MG TABLET PO SCH ×5 (00:13→23:21)
[2016-10-31] MEDS: MORPHINE SULFATE 2 MG/ML SYRINGE IV PRN (00:13)
[2016-10-31] MEDS: OXYCODONE HCL 5 MG TABLET PO PRN ×2 (01:40→15:38)
[2016-10-31] MEDS: MORPHINE SULFATE 4 MG/ML SYRINGE IV PRN ×5 (02:07→16:26)
[2016-10-31 06:46] LABS: HEMATOCRIT 26.7 % (37.0-47.0); MEAN CELL VOLUME 93.7 fl (81.0-99.0); MEAN CORPUSCULAR HEMOGLOBIN 31.6 pg (27.0-31.0); MEAN CORPUSCULAR HGB CONC 33.7 g/dl (33.0-37.0); RED CELL DISTRIBUTION WIDTH 12.8 % (11.5-14.5)
[2016-10-31] MEDS ORDERED: ALENDRONATE SODIUM 70 MG TABLET PO SCH (07:00)
[2016-10-31 07:03] LABS: CALCIUM 8.8 mg/dL (8.6-10.3)
[2016-10-31] MEDS: METOPROLOL TARTRATE 25 MG TABLET PO SCH ×2 (09:52→20:43)
[2016-10-31] MEDS: ENOXAPARIN SODIUM 40 MG/0.4 ML SYRINGE SUB-Q SCH (10:28)
[2016-10-31] MEDS ORDERED: SODIUM CHLORIDE 0.9% FLUSH 10 ML ONE (10:31)
[2016-10-31] MEDS ORDERED: IV START KIT ONE (10:31)
[2016-10-31] MEDS: ASCORBIC ACID 500 MG TABLET PO SCH ×2 (11:03→22:43)
[2016-10-31] MEDS: ATORVASTATIN CALCIUM 40 MG TABLET PO SCH (11:03)
[2016-10-31] MEDS: MULTIVITAMINS 1 TAB TABLET PO SCH (11:03)
[2016-10-31] MEDS: CALCIUM CARBONATE 600 MG/VITAMIN D3 400 UNIT/TABLET PO SCH ×3 (11:03→20:43)
[2016-10-31] MEDS: VITAMIN D3 1,000 UNITS CAP.LIQ PO SCH (11:03)
[2016-10-31] MEDS: DOCUSATE SODIUM 100 MG CAPSULE PO SCH ×2 (11:03→20:43)
--- NOTE | 2016-10-31 12:22 | PDOC43 ---
- Subjective Subjective: Reports Pain Tolerable (Patient confused, stating that she does experience pain in her left lower extremity.) - Objective Vital Signs Temperature 97.6 F 10/31/16 08:24 Pulse Rate 68 10/31/16 08:24 Respiratory Rate 18 10/31/16 08:24 Blood Pressure 126/54 10/31/16 08:24 O2 Saturation by Pulse Oximetry 96 10/31/16 08:24 Oxygen Delivery Method Room Air Oxygen Flow Rate 0 Laboratory 10/31/16 06:20 10/31/16 06:20 10/31/16 06:20 RBC 2.85 L MCH 31.6 H Estimated GFR 52 L Active Medication Orders Category Date Time Status Acetaminophen [Tylenol] Med 10/29/16 12:06 Active 1,000 mg PO Q6H Alendronate Sodium [Fosamax] Med 10/31/16 07:00 Pending 70 mg PO Q7D Ascorbic Acid [Vitamin C] Med 10/29/16 21:00 Active 500 mg PO BID Atorvastatin Calcium [Lipitor] Med 10/30/16 09:00 Active 40 mg PO DAILY Calcium Carbonate [Tums] Med 10/29/16 12:06 Active 1,000 - 2,000 mg PO Q2H PRN Calcium Carbonate/Vitamin D3 Med 10/29/16 15:00 Active 1 each PO TID Docusate Sodium [Colace] Med 10/29/16 21:00 Active 100 mg PO BID Enoxaparin Sodium [Lovenox] Med 10/30/16 09:50 Active 40 mg SUB-Q Q24H Magnesium Hydroxide [Milk of Magnesia] Med 10/30/16 11:46 Active 30 ml PO DAILY PRN Metoprolol Tartrate [Lopressor] Med 10/29/16 21:00 Active 12.5 mg PO BID Morphine Sulfate Med 10/30/16 22:52 Active 2 - 4 mg IV Q4H PRN Multivitamins [One-A-Day] Med 10/30/16 09:00 Active 1 tab PO DAILY Ondansetron 4 mg/2ml Vial [Zofran] Med 10/29/16 14:09 Active 4 mg IV Q6H PRN Oxycodone HCl [Roxicodone] Med 10/29/16 14:09 Active 2.5 - 5 mg PO Q4H PRN Sertraline HCl [Zoloft] Med 10/29/16 21:00 Active 25 mg PO BEDTIME Sodium Chloride 0.9% Flush [Normal Saline 10ml Flush] Med 10/29/16 12:06 Active 10 - 50 ml IV PRN PRN Sodium Chloride 0.9% Flush [Normal Saline 10ml Flush] Med 10/29/16 17:00 Active 10 ml IV Q8HR Vitamin D3 Med 10/30/16 09:00 Active 1,000 units PO DAILY Intake and Output 10/30/16 10/31/16 11/01/16 06:59 06:59 06:59 Intake Total 3757 290 Output Total 1375 550 Balance 2382 -260 General: Afebrile, No Acute Distress Psych/Mental Status: Other (Patient confused, unable to provide appropriate responses to questions.) - Left Lower Extremity Incision: Dressing Clean/Dry/Intact, Well Approximated, No Drainage, No Erythema , No Rash Motor: Extensor Hallucis Longus: 4/5 Gross Sensation to Light Touch: Present: Medial Plantar Nerve, Lateral Plantar Nerve, Sural Nerve, Saphenous Nerve Capillary Refill: < 3 Seconds (Brace in good position.) - Disposition POD#2 s/p left femoral retrograde IMN for a femoral shaft with distal intra- articular extension WBAT with chai brace locked in extension. Lovenox for DVT PT to get up with PT and OT. Due to dementia baseline pain is hard to asses Pt. will be transferred to SNF when appropriate Appreciate hospitalist involvement. Will continue to follow while she is inpatient.
[2016-10-31] MEDS ORDERED: HALOPERIDOL LACTATE 5 MG/1 ML AMP IV PRN (16:58)
[2016-10-31] MEDS: LORAZEPAM 2 MG/ML 1ML SDV IV PRN ×2 (17:06→22:33)
[2016-10-31] MEDS ORDERED: OXYCODONE HCL 5 MG TABLET PO PRN (18:26)
--- NOTE | 2016-10-31 18:26 | PDOC43 ---
- Subjective Chief Complaint: fall with left femur fracture Has been more awake and alert today but anxious and agitated when awake. Poor apatite - Objective Vital Signs Temperature 97.7 F 10/31/16 14:00 Pulse Rate 87 10/31/16 14:00 Respiratory Rate 16 10/31/16 14:00 Blood Pressure 144/82 10/31/16 14:00 O2 Saturation by Pulse Oximetry 95 10/31/16 14:00 Oxygen Delivery Method Room Air Oxygen Flow Rate 0 Intake and Output 10/30/16 10/31/16 11/01/16 06:59 06:59 06:59 Intake Total 3757 290 Output Total 1375 550 Balance 2382 -260 General: Alert, Mild Distress, No Oriented x3, No Cooperative HEENT: Mucous membr. moist/pink Lungs: Clear to Auscultation Bilaterally Cardiovascular: Regular Rate and Rhythm Abdomen: Soft, Normal Bowel Sounds, No Tenderness, No Masses Extremities: Pulses Diminished but Palpable, No Edema Wound: Dressing Clean/Dry/Intact (on left leg) Psych/Mental Status: Anxious Laboratory 10/31/16 06:20 10/31/16 06:20 10/31/16 06:20 RBC 2.85 L MCH 31.6 H Estimated GFR 52 L Current Medications: Current meds reviewed in EMR. - Problems: Assessment/Plan (1) Fracture, femur closed, shaft Qualifiers: Encounter type: initial encounter Fracture morphology: oblique Fracture alignment: nondisplaced Laterality: left Qualifier Code: ( S72.335A) Nondisplaced oblique fracture of shaft of left femur, initial encounter for closed fracture Status: AcuteAssessment/Plan: S/P repair in OR 10/29/16. Care per orthopedics. (2) Acute blood loss anemia Status: AcuteAssessment/Plan: Due to fracture and expected to increase with surgery. Follow and transfuse if symptomatic. 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 Trial very low dose lorazapam/haloperidol and start quetiapine. (4) Diastolic CHF Qualifiers: Congestive heart failure chronicity: chronic Qualifier Code: (I50.32) Chronic diastolic (congestive) heart failure Status: ChronicAssessment/Plan : Chronic diagnosis associated with pulmonary HTN. (not [place]). Not on diuretics at home, follow closely and decrease fluid infusion. Suspect the single documented saturation of 83% was an error as it was two minutes after a normal saturation of 92% on Room Air. (5) Osteopenia Qualifiers: Osteopenia location: multiple sites Qualifier Code: (M85.89) Other specified disorders of bone density and structure, multiple sites Status: ChronicAssessment/Plan: With fragility fracture gives her the diagnosis of osteoporosis. Start Ca/Vit D , resume Alendronate (6) HLD (hyperlipidemia) Qualifiers: Hyperlipidemia type: mixed hyperlipidemia Qualifier Code: (E78.2) Mixed hyperlipidemia Status: ChronicAssessment/Plan: stable (7) CKD (chronic kidney disease) stage 3, GFR 30-59 ml/min Status: ChronicAssessment/Plan: stable, follow. (8) HTN (hypertension) Qualifiers: Hypertension type: essential hypertension Qualifier Code: (I10) Essential (primary) hypertension Status: ChronicAssessment/Plan: Well controlled, resume metoprolol. VTE Prophylaxis: Enoxaparin and mechanical Disposition: Likely SNF rehab in 1-2 days
[2016-10-31] MEDS ORDERED: OXYCODONE HCL 5 MG TABLET PO SCH (18:30)
[2016-10-31] MEDS ORDERED: QUETIAPINE FUMARATE 25 MG TABLET PO SCH (21:00)
[2016-10-31] MEDS: OXYCODONE HCL 5 MG TABLET PO SCH (22:38)
[2016-10-31] MEDS: SERTRALINE HCL 50 MG TABLET PO SCH (22:43)
[2016-11-01] MEDS ORDERED: MORPHINE SULFATE 2 MG/ML SYRINGE ONE ×4 (02:57→12:21)
[2016-11-01] MEDS: MORPHINE SULFATE 4 MG/ML SYRINGE IV PRN ×5 (03:01→17:10)
[2016-11-01] MEDS: OXYCODONE HCL 5 MG TABLET PO SCH ×6 (04:30→23:53)
[2016-11-01] MEDS: ACETAMINOPHEN 500 MG TABLET PO SCH ×4 (06:01→19:48)
[2016-11-01 06:26] LABS: HEMATOCRIT 26.9 % (37.0-47.0); HEMOGLOBIN 9.1 gm/l (12.0-16.0); MEAN CELL VOLUME 95.1 fl (81.0-99.0); MEAN CORPUSCULAR HEMOGLOBIN 32.2 pg (27.0-31.0); MEAN CORPUSCULAR HGB CONC 33.8 g/dl (33.0-37.0)
[2016-11-01 06:51] LABS: CALCIUM 8.9 mg/dL (8.6-10.3)
[2016-11-01] MEDS: LORAZEPAM 2 MG/ML 1ML SDV IV PRN ×3 (07:22→19:47)
[2016-11-01] MEDS: ENOXAPARIN SODIUM 40 MG/0.4 ML SYRINGE SUB-Q SCH (09:39)
[2016-11-01] MEDS: METOPROLOL TARTRATE 25 MG TABLET PO SCH ×2 (09:40→23:52)
[2016-11-01] MEDS: MAGNESIUM HYDROXIDE 30 ML UDCUP PO PRN (10:35)
[2016-11-01] MEDS: ATORVASTATIN CALCIUM 40 MG TABLET PO SCH (10:35)
[2016-11-01] MEDS: ASCORBIC ACID 500 MG TABLET PO SCH ×2 (10:41→21:40)
--- NOTE | 2016-11-01 11:35 | PDOC43 ---
- Subjective Subjective: Reports Pain Tolerable (Pt. appears more comfortable today. She became agitated during the night, was given Haldol.) - Objective Vital Signs Temperature 97.6 F 11/01/16 08:00 Pulse Rate 89 11/01/16 08:00 Respiratory Rate 20 11/01/16 08:00 Blood Pressure 133/52 11/01/16 08:00 O2 Saturation by Pulse Oximetry 97 11/01/16 08:00 Oxygen Delivery Method Room Air Oxygen Flow Rate 0 Laboratory 11/01/16 05:30 11/01/16 05:30 11/01/16 05:30 RBC 2.83 L MCH 32.2 H Estimated GFR 52 L Active Medication Orders Category Date Time Status Acetaminophen [Tylenol] Med 10/29/16 12:06 Active 1,000 mg PO Q6H Alendronate Sodium [Fosamax] Med 10/31/16 07:00 Pending 70 mg PO Q7D Ascorbic Acid [Vitamin C] Med 10/29/16 21:00 Active 500 mg PO BID Atorvastatin Calcium [Lipitor] Med 10/30/16 09:00 Active 40 mg PO DAILY Calcium Carbonate [Tums] Med 10/29/16 12:06 Active 1,000 - 2,000 mg PO Q2H PRN Calcium Carbonate/Vitamin D3 Med 10/29/16 15:00 Active 1 each PO TID Docusate Sodium [Colace] Med 10/29/16 21:00 Active 100 mg PO BID Enoxaparin Sodium [Lovenox] Med 10/30/16 09:50 Active 40 mg SUB-Q Q24H Lorazepam [Ativan] Med 10/31/16 16:58 Active 0.25 mg IV Q6H PRN Magnesium Hydroxide [Milk of Magnesia] Med 10/30/16 11:46 Active 30 ml PO DAILY PRN Metoprolol Tartrate [Lopressor] Med 10/29/16 21:00 Active 12.5 mg PO BID Morphine Sulfate Med 10/30/16 22:52 Active 2 - 4 mg IV Q4H PRN Multivitamins [One-A-Day] Med 10/30/16 09:00 Active 1 tab PO DAILY Oxycodone HCl [Roxicodone] Med 10/31/16 21:30 Active 2.5 mg PO Q6H Oxycodone HCl [Roxicodone] Med 10/31/16 18:26 Active 2.5 mg PO Q6H PRN Quetiapine Fumarate [Seroquel] Med 10/31/16 21:00 Active 12.5 mg PO BEDTIME Sertraline HCl [Zoloft] Med 10/29/16 21:00 Active 25 mg PO BEDTIME Sodium Chloride 0.9% Flush [Normal Saline 10ml Flush] Med 10/29/16 12:06 Active 10 - 50 ml IV PRN PRN Sodium Chloride 0.9% Flush [Normal Saline 10ml Flush] Med 10/29/16 17:00 Active 10 ml IV Q8HR Vitamin D3 Med 10/30/16 09:00 Active 1,000 units PO DAILY Intake and Output 10/31/16 11/01/16 11/02/16 06:59 06:59 06:59 Intake Total 290 460 Output Total 550 400 Balance -260 60 General: Afebrile, No Acute Distress - Left Lower Extremity Incision: Dressing Clean/Dry/Intact, Well Approximated, No Drainage, No Erythema , No Rash Motor: Extensor Hallucis Longus: 5/5, Tibialis Anterior: 5/5, Gastrocnemius: 5/5 Gross Sensation to Light Touch: Present: Lateral Plantar Nerve, Sural Nerve, Saphenous Nerve Capillary Refill: < 3 Seconds (Moving left lower extremity well, including knee and ankle. Moving left hip, but with some pain.) - Disposition POD#3 s/p left femoral retrograde IMN for a femoral shaft with distal intra- articular extension WBAT with chai brace locked in extension. Lovenox for DVT; Not wearing brace at time of eval today. PT to get up with PT and OT. Pain level appears less today. Given Haldol during night. Plan transfer to SNF on Thursday. Appreciate hospitalist involvement.
[2016-11-01] MEDS ORDERED: BISACODYL 10 MG SUP PR PRN (11:46)
--- NOTE | 2016-11-01 13:00 | PDOC43 ---
- Subjective Chief Complaint: fall with left femur fracture Anxious and crying out, appears to be in pain. - Objective Vital Signs Temperature 97.6 F 11/01/16 08:00 Pulse Rate 89 11/01/16 08:00 Respiratory Rate 20 11/01/16 08:00 Blood Pressure 133/52 11/01/16 08:00 O2 Saturation by Pulse Oximetry 97 11/01/16 08:00 Oxygen Delivery Method Room Air Oxygen Flow Rate 0 Intake and Output 10/31/16 11/01/16 11/02/16 06:59 06:59 06:59 Intake Total 290 460 Output Total 550 400 Balance -260 60 General: Alert, Moderate Distress, No Oriented x3, No Cooperative HEENT: Mucous membr. moist/pink Lungs: Clear to Auscultation Bilaterally Cardiovascular: Regular Rate and Rhythm Abdomen: Soft, Normal Bowel Sounds, No Tenderness, No Masses Extremities: Normal Pulses, No Edema Wound: Dressing Clean/Dry/Intact (on left thigh) Neurological: Other (moaning) Psych/Mental Status: Anxious Laboratory 11/01/16 05:30 11/01/16 05:30 11/01/16 05:30 RBC 2.83 L MCH 32.2 H Estimated GFR 52 L Current Medications: Current meds reviewed in EMR. - Problems: Assessment/Plan (1) Fracture, femur closed, shaft Qualifiers: Encounter type: initial encounter Fracture morphology: oblique Fracture alignment: nondisplaced Laterality: left Qualifier Code: ( S72.335A) Nondisplaced oblique fracture of shaft of left femur, initial encounter for closed fracture Status: AcuteAssessment/Plan: S/P repair in OR 10/29/16. Care per orthopedics. (2) Acute blood loss anemia Status: AcuteAssessment/Plan: Due to fracture and expected to increase with surgery. stable. 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 Trial of lorazapam/haloperidol 10/31. Try to limit lorazapam and avoid haloperidol. Quetiapine started and dose will be increased. (4) Diastolic CHF Qualifiers: Congestive heart failure chronicity: chronic Qualifier Code: (I50.32) Chronic diastolic (congestive) heart failure Status: ChronicAssessment/Plan : Chronic diagnosis associated with pulmonary HTN. (not [place]). Not on diuretics at home, follow closely and decrease fluid infusion. Suspect the single documented saturation of 83% was an error as it was two minutes after a normal saturation of 92% on Room Air. (5) Osteopenia Qualifiers: Osteopenia location: multiple sites Qualifier Code: (M85.89) Other specified disorders of bone density and structure, multiple sites Status: ChronicAssessment/Plan: With fragility fracture gives her the diagnosis of osteoporosis. Start Ca/Vit D , resume Alendronate (6) HLD (hyperlipidemia) Qualifiers: Hyperlipidemia type: mixed hyperlipidemia Qualifier Code: (E78.2) Mixed hyperlipidemia Status: ChronicAssessment/Plan: stable (7) CKD (chronic kidney disease) stage 3, GFR 30-59 ml/min Status: ChronicAssessment/Plan: stable, follow. (8) HTN (hypertension) Qualifiers: Hypertension type: essential hypertension Qualifier Code: (I10) Essential (primary) hypertension Status: ChronicAssessment/Plan: Well controlled, on metoprolol. VTE Prophylaxis: Enoxaparin and mechanical Disposition: Likely SNF rehab in 1-2 days
[2016-11-01] MEDS: CALCIUM CARBONATE 600 MG/VITAMIN D3 400 UNIT/TABLET PO SCH ×3 (15:54→21:39)
[2016-11-01] MEDS: DOCUSATE SODIUM 100 MG CAPSULE PO SCH ×2 (15:54→23:52)
[2016-11-01] MEDS: VITAMIN D3 1,000 UNITS CAP.LIQ PO SCH (15:55)
[2016-11-01] MEDS: MULTIVITAMINS 1 TAB TABLET PO SCH (15:55)
[2016-11-01] MEDS ORDERED: LACTULOSE 20 G/30 ML UDCUP PO PRN (17:29)
[2016-11-01] MEDS ORDERED: ENEMA--adult 1 EACH PR PRN (17:29)
[2016-11-01] MEDS: OXYCODONE HCL 5 MG TABLET PO PRN (19:47)
[2016-11-01] MEDS: QUETIAPINE FUMARATE 25 MG TABLET PO SCH (20:14)
[2016-11-01] MEDS: POLYETHYLENE GLYCOL 3350 17 G POWD.SUSP PO SCH (23:53)
[2016-11-01] MEDS: SERTRALINE HCL 50 MG TABLET PO SCH (23:53)
[2016-11-02] MEDS ORDERED: SODIUM CHLORIDE 0.9% 500 ML IV SCH (00:30)
[2016-11-02] MEDS ORDERED: PUMP TUBING ONE (00:35)
[2016-11-02] MEDS: ACETAMINOPHEN 500 MG TABLET PO SCH ×5 (00:40→23:56)
[2016-11-02] MEDS: OXYCODONE HCL 5 MG TABLET PO SCH ×8 (01:20→23:57)
[2016-11-02] MEDS ORDERED: IV START KIT ONE (03:11)
[2016-11-02] MEDS ORDERED: SODIUM CHLORIDE 0.9% FLUSH 10 ML ONE (03:11)
[2016-11-02] MEDS ORDERED: KETOROLAC TROMETHAMINE 15 MG/ML VIAL IV ONE (08:10)
--- NOTE | 2016-11-02 08:56 | PDOC43 ---
- Subjective Chief Complaint: fall with left femur fracture; postoperative delirium Patient with restlessness last night, did get extra dose of lorazepam, quite sleepy afterward. This am, woke and did take bowl of oatmeal, now back in bed. Breathing reported ok. No chest pain. No GI c/o. Just seems to complain about leg pain, continues to be somewhat restless, shifting frequently in bed. No BM, but does have several meds ordered yesterday, including enema. - Objective Vital Signs Temperature 97.5 F 11/02/16 07:18 Pulse Rate 78 11/02/16 07:18 Respiratory Rate 20 11/02/16 07:18 Blood Pressure 141/65 11/02/16 07:18 O2 Saturation by Pulse Oximetry 91 11/02/16 07:18 Oxygen Delivery Method Room Air Oxygen Flow Rate 0 Vital Signs Last 12 Hours Temp Pulse Resp BP Pulse Ox 11/02/16 07:18 97.5 F 78 20 141/65 91 11/02/16 02:00 97.6 F 58 18 111/50 99 11/02/16 01:00 12 11/01/16 23:41 98.0 F 59 12 102/51 95 Intake and Output 10/31/16 11/01/16 11/02/16 23:59 23:59 23:59 Intake Total 190 440 275 Output Total 475 275 0 Balance -285 165 275 General: Acute Distress (restless, c/o some pain, seems to be in leg.), Other ( able to answer questions, such as where she grew up. Holds my hand.) Lungs: Clear to Auscultation Bilaterally (sl wheeze noted) Cardiovascular: Regular Rate and Rhythm Abdomen: Soft, Normal Bowel Sounds Extremities: Other (dressings on leg, CDI. Bruising on inner thigh. Pt moves leg , uncomfortably.), No Edema Skin: Normal Color Psych/Mental Status: Other (restless, c/o leg pain. Somewhat reassured by holding hand.) Laboratory 11/01/16 05:30 11/01/16 05:30 Current Medications: Current meds reviewed in EMR. Active Medications Acetaminophen (Tylenol) 1,000 mg PO Q6H JOSE Last Admin: 11/02/16 06:28 Dose: 1,000 mg Alendronate Sodium (Fosamax) 70 mg PO Q7D [facility] Ascorbic Acid (Vitamin C) 500 mg PO BID [facility] Last Admin: 11/01/16 21:40 Dose: Not Given Atorvastatin Calcium (Lipitor) 40 mg PO DAILY [facility] Last Admin: 11/01/16 10:35 Dose: 40 mg Calcium Carbonate (Calcium Carbonate/Vitamin D3) 1 each PO TID [facility] Last Admin: 11/01/16 21:39 Dose: Not Given Calcium Carbonate/Glycine (Tums) 1,000 - 2,000 mg PO Q2H PRN PRN Reason: Heartburn/Indigestion Cholecalciferol (Vitamin D3) 1,000 units PO DAILY [facility] Last Admin: 11/01/16 15:55 Dose: Not Given Docusate Sodium (Colace) 100 mg PO BID [facility] Last Admin: 11/01/16 23:52 Dose: Not Given Enoxaparin Sodium (Lovenox) 40 mg SUB-Q Q24H [facility] Last Admin: 11/01/16 09:39 Dose: 40 mg Lactulose (Enulose) 10 g PO DAILY PRN PRN Reason: Constipation Lorazepam (Ativan) 0.25 mg IV Q6H PRN PRN Reason: Anxiety Last Admin: 11/01/16 19:47 Dose: 0.25 mg Magnesium Hydroxide (Milk Of Magnesia) 30 ml PO DAILY PRN PRN Reason: If no BM by evening of POD#1 Last Admin: 11/01/16 10:35 Dose: 30 ml Metoprolol Tartrate (Lopressor) 12.5 mg PO BID [facility] Last Admin: 11/01/16 23:52 Dose: Not Given Morphine Sulfate (Morphine Sulfate) 2 - 4 mg IV Q4H PRN PRN Reason: Pain Last Admin: 11/01/16 17:10 Dose: 4 mg Morphine Sulfate (Morphine Sulfate) 2 - 4 mg IV Q4H PRN PRN Reason: Pain Last Admin: 11/01/16 12:28 Dose: 2 mg Multivitamins (One-A-Day) 1 tab PO DAILY [facility] Last Admin: 11/01/16 15:55 Dose: Not Given Oxycodone HCl (Roxicodone) 2.5 mg PO Q3H PRN PRN Reason: Pain Last Admin: 11/01/16 19:47 Dose: 2.5 mg Oxycodone HCl (Roxicodone) 2.5 mg PO Q3H [facility] Last Admin: 11/02/16 06:28 Dose: 2.5 mg Polyethylene Glycol/Electrolytes (Miralax) 17 g PO BEDTIME [facility] Last Admin: 11/01/16 23:53 Dose: Not Given Quetiapine Fumarate (Seroquel) 25 mg PO BEDTIME [facility] Last Admin: 11/01/16 20:14 Dose: 25 mg Sertraline HCl (Zoloft) 25 mg PO BEDTIME [facility] Last Admin: 11/01/16 23:53 Dose: Not Given Sodium Biphosphate/Sodium Phosphate (Fleet Adult Enema) 1 each ME DAILY PRN PRN Reason: Constipation Sodium Chloride (Normal Saline 10ml Flush) 10 - 50 ml IV PRN PRN PRN Reason: IV Flush Last Admin: 11/01/16 13:11 Dose: 10 ml Sodium Chloride (Normal Saline 10ml Flush) 10 ml IV Q8HR [facility] Last Admin: 11/02/16 00:41 Dose: 10 ml - Problems: Assessment/Plan (1) Fracture, femur closed, shaft Qualifiers: Encounter type: initial encounter Fracture morphology: oblique Fracture alignment: nondisplaced Laterality: left Qualifier Code: ( S72.335A) Nondisplaced oblique fracture of shaft of left femur, initial encounter for closed fracture Status: AcuteAssessment/Plan: S/P repair in OR 10/29/16. Appreciate orthopedic care. (2) CKD (chronic kidney disease) stage 3, GFR 30-59 ml/min Status: ChronicAssessment/Plan: stable, following. GFR 45. (3) Dementia Qualifiers: Dementia type: Alzheimer's disease Alzheimer's disease onset: late- onset Dementia behavioral disturbance: without behavioral disturbance Qualifier Code: (G30.1) Alzheimer's disease with late onset Status: Chronic Assessment/Plan: No history of behavioral disturbances (did have postop delirium on previous times as well), but now having pain and anxiety. Trying to limit lorazapam and avoid haloperidol. Quetiapine started (4) Pulmonary hypertension Status: ChronicAssessment/Plan: Appears stable, monitor. (5) Delirium Status: AcuteAssessment/Plan: Patient with some postoperative delirium, c/w metabolic encephalopathy, due to postop status, pain medications, disturbed sleep, dementia. Some confusion, disorientation, and refusal to take oral meds/paranoia about poisoning. On seroquel; did get ativan last night. Will try tx with a small dose of toradol to help with pain, avoid [employer] effect(s). Responds well to personal contact. VTE Prophylaxis: Enoxaparin and mechanical Disposition: Likely SNF rehab in 1-2 days, but delirium/agitation a concern for placement.
[2016-11-02] MEDS: ATORVASTATIN CALCIUM 40 MG TABLET PO SCH (09:00)
[2016-11-02] MEDS: METOPROLOL TARTRATE 25 MG TABLET PO SCH ×2 (09:00→20:54)
[2016-11-02] MEDS: CALCIUM CARBONATE 600 MG/VITAMIN D3 400 UNIT/TABLET PO SCH ×3 (09:00→20:54)
[2016-11-02] MEDS: DOCUSATE SODIUM 100 MG CAPSULE PO SCH ×2 (09:01→20:54)
[2016-11-02] MEDS: ASCORBIC ACID 500 MG TABLET PO SCH ×2 (09:01→20:54)
[2016-11-02] MEDS: MULTIVITAMINS 1 TAB TABLET PO SCH (09:01)
[2016-11-02] MEDS: VITAMIN D3 1,000 UNITS CAP.LIQ PO SCH (09:01)
[2016-11-02] MEDS: MAGNESIUM HYDROXIDE 30 ML UDCUP PO PRN (09:01)
[2016-11-02] MEDS: ENOXAPARIN SODIUM 40 MG/0.4 ML SYRINGE SUB-Q SCH (09:01)
--- NOTE | 2016-11-02 10:34 | PDOC43 ---
- Subjective Subjective: Reports Pain Tolerable (Pt. complains of pain, however, I was able to range her left lower extremity with no complaint of pain at that time.) - Objective Vital Signs Temperature 97.5 F 11/02/16 07:18 Pulse Rate 78 11/02/16 07:18 Respiratory Rate 20 11/02/16 07:18 Blood Pressure 141/65 11/02/16 07:18 O2 Saturation by Pulse Oximetry 91 11/02/16 07:18 Oxygen Delivery Method Room Air Oxygen Flow Rate 0 Laboratory 11/01/16 05:30 11/01/16 05:30 Active Medication Orders Category Date Time Status Acetaminophen [Tylenol] Med 10/29/16 12:06 Active 1,000 mg PO Q6H Alendronate Sodium [Fosamax] Med 10/31/16 07:00 Pending 70 mg PO Q7D Ascorbic Acid [Vitamin C] Med 10/29/16 21:00 Active 500 mg PO BID Atorvastatin Calcium [Lipitor] Med 10/30/16 09:00 Active 40 mg PO DAILY Calcium Carbonate [Tums] Med 10/29/16 12:06 Active 1,000 - 2,000 mg PO Q2H PRN Calcium Carbonate/Vitamin D3 Med 10/29/16 15:00 Active 1 each PO TID Docusate Sodium [Colace] Med 10/29/16 21:00 Active 100 mg PO BID Enoxaparin Sodium [Lovenox] Med 10/30/16 09:50 Active 40 mg SUB-Q Q24H Lactulose [Enulose] Med 11/01/16 17:29 Active 10 g PO DAILY PRN Lorazepam [Ativan] Med 10/31/16 16:58 Active 0.25 mg IV Q6H PRN Magnesium Hydroxide [Milk of Magnesia] Med 10/30/16 11:46 Active 30 ml PO DAILY PRN Metoprolol Tartrate [Lopressor] Med 10/29/16 21:00 Active 12.5 mg PO BID Morphine Sulfate Med 10/30/16 22:52 Active 2 - 4 mg IV Q4H PRN Morphine Sulfate Med 10/30/16 22:52 Active 2 - 4 mg IV Q4H PRN Multivitamins [One-A-Day] Med 10/30/16 09:00 Active 1 tab PO DAILY Na Phos,M-B/Na Phos,Di-Ba [Fleet Adult Enema] Med 11/01/16 17:29 Active 1 each MT DAILY PRN Oxycodone HCl [Roxicodone] Med 11/01/16 13:03 Active 2.5 mg PO Q3H Oxycodone HCl [Roxicodone] Med 11/01/16 13:02 Active 2.5 mg PO Q3H PRN Polyethylene Glycol 3350 [Miralax] Med 11/01/16 21:00 Active 17 g PO BEDTIME Quetiapine Fumarate [Seroquel] Med 11/01/16 13:03 Active 25 mg PO BEDTIME Sertraline HCl [Zoloft] Med 10/29/16 21:00 Active 25 mg PO BEDTIME Sodium Chloride 0.9% Flush [Normal Saline 10ml Flush] Med 10/29/16 12:06 Active 10 - 50 ml IV PRN PRN Sodium Chloride 0.9% Flush [Normal Saline 10ml Flush] Med 10/29/16 17:00 Active 10 ml IV Q8HR Vitamin D3 Med 10/30/16 09:00 Active 1,000 units PO DAILY Intake and Output 11/01/16 11/02/16 11/03/16 06:59 06:59 06:59 Intake Total 460 355 Output Total 400 150 Balance 60 205 General: Afebrile, No Acute Distress Psych/Mental Status: Agitated Peripheral Pulses: Left Posterior Tibialis: 3+/4+, Left Dorsalis Pedis: 3+/4+ - Left Lower Extremity Incision: Dressing Clean/Dry/Intact, Well Approximated, [place] Intact Motor: Extensor Hallucis Longus: 5/5, Tibialis Anterior: 5/5, Gastrocnemius: 5/5 Gross Sensation to Light Touch: Present: Medial Plantar Nerve, Lateral Plantar Nerve, Sural Nerve, Saphenous Nerve Capillary Refill: < 3 Seconds (Good active motion of left knee and ankle.) - Disposition POD#4 s/p left femoral retrograde IMN for a femoral shaft with distal intra- articular extension WBAT with chai brace locked in extension during PT. Brace removed when patient is at bedrest. Lovenox for DVT. Patient getting up with PT assistance,; cooperation is minimal. Pain level appears less today. Somewhat agitated during night. Given Seroquel. Plan transfer to SNF on Thursday. Appreciate hospitalist involvement.
[2016-11-02] MEDS ORDERED: SODIUM CHLORIDE 0.9% 500 ML IV ONE (12:19)
[2016-11-02] MEDS: LORAZEPAM 2 MG/ML 1ML SDV IV PRN ×2 (16:12→23:57)
[2016-11-02] MEDS: SERTRALINE HCL 50 MG TABLET PO SCH (20:52)
[2016-11-02] MEDS: QUETIAPINE FUMARATE 25 MG TABLET PO SCH (20:53)
[2016-11-02] MEDS: POLYETHYLENE GLYCOL 3350 17 G POWD.SUSP PO SCH (23:33)
[2016-11-03] MEDS: OXYCODONE HCL 5 MG TABLET PO SCH ×8 (01:59→23:40)
[2016-11-03] MEDS ORDERED: SODIUM CHLORIDE 0.9% 500 ML IV SCH (03:45)
[2016-11-03] MEDS: ACETAMINOPHEN 500 MG TABLET PO SCH ×4 (06:27→23:40)
[2016-11-03] MEDS: ATORVASTATIN CALCIUM 40 MG TABLET PO SCH (09:03)
[2016-11-03] MEDS: VITAMIN D3 1,000 UNITS CAP.LIQ PO SCH (09:03)
[2016-11-03] MEDS: CALCIUM CARBONATE 600 MG/VITAMIN D3 400 UNIT/TABLET PO SCH ×3 (09:03→21:25)
[2016-11-03] MEDS: MULTIVITAMINS 1 TAB TABLET PO SCH (09:03)
[2016-11-03] MEDS: METOPROLOL TARTRATE 25 MG TABLET PO SCH ×2 (09:03→21:26)
[2016-11-03] MEDS: ASCORBIC ACID 500 MG TABLET PO SCH ×2 (09:04→21:26)
[2016-11-03] MEDS: DOCUSATE SODIUM 100 MG CAPSULE PO SCH ×2 (09:19→21:26)
[2016-11-03] MEDS: ENOXAPARIN SODIUM 40 MG/0.4 ML SYRINGE SUB-Q SCH (10:09)
[2016-11-03] MEDS: LORAZEPAM 0.5 MG TABLET PO PRN (11:33)
--- NOTE | 2016-11-03 15:39 | PDOC43 ---
- Subjective Chief Complaint: fall with left femur fracture; postoperative delirium Subjective: Reports Pain Tolerable, Reports Tolerating Diet Well, Reports Other (some sundowning behavior and was given IV Ativan last night) - Objective Vital Signs Temperature 98.0 F 11/03/16 14:00 Pulse Rate 70 11/03/16 14:00 Respiratory Rate 20 11/03/16 14:00 Blood Pressure 124/70 11/03/16 14:00 O2 Saturation by Pulse Oximetry 93 11/03/16 14:00 Oxygen Delivery Method Room Air Oxygen Flow Rate 0 Intake and Output 11/02/16 11/03/16 11/04/16 06:59 06:59 06:59 Intake Total 355 1450 Output Total 150 503 Balance 205 947 General: Alert, Cooperative, No Acute Distress HEENT: Mucous membr. moist/pink Lungs: Clear to Auscultation Bilaterally Cardiovascular: Regular Rate and Rhythm Abdomen: Soft, Normal Bowel Sounds, Non-Distended, No Tenderness Extremities: Edema (and bruising of left thigh, incisions lisa, clean and dry ) Laboratory 11/01/16 05:30 11/03/16 05:30 11/03/16 11/01/16 10/29/16 05:30 05:30 06:40 RBC 2.83 L MCH 32.2 H BUN 30 H Estimated GFR 47 L Crossmatch See Detail Current Medications: Current meds reviewed in EMR. - Problems: Assessment/Plan (1) Acute blood loss anemia Status: AcuteAssessment/Plan: Due to fracture and expected to increase with surgery. stable. (2) Delirium Status: AcuteAssessment/Plan: Patient with some postoperative delirium, c/w metabolic encephalopathy, due to postop status, pain medications, disturbed sleep, dementia. On seroquel; did get IV ativan last night. Responds well to personal contact. --stop IV Ativan and use PRN xanax (3) Fracture, femur closed, shaft Qualifiers: Encounter type: initial encounter Fracture morphology: oblique Fracture alignment: nondisplaced Laterality: left Qualifier Code: ( S72.335A) Nondisplaced oblique fracture of shaft of left femur, initial encounter for closed fracture Status: AcuteAssessment/Plan: S/P repair in OR 10/29/16. Appreciate orthopedic care. (4) Dementia Qualifiers: Dementia type: Alzheimer's disease Alzheimer's disease onset: late- onset Dementia behavioral disturbance: without behavioral disturbance Qualifier Code: (G30.1) Alzheimer's disease with late onset Status: Chronic Assessment/Plan: No history of behavioral disturbances (did have postop delirium on previous times as well), but now having pain and anxiety. Trying to limit lorazapam and avoid haloperidol. Quetiapine started (5) CKD (chronic kidney disease) stage 3, GFR 30-59 ml/min Status: ChronicAssessment/Plan: stable, following. GFR 45. VTE Prophylaxis: Enoxaparin and mechanical Disposition: Likely SNF rehab in 1-2 days, but delirium/agitation a problem for placement and must be off IV behavioral meds for 24-48hrs.
[2016-11-03] MEDS: OXYCODONE HCL 5 MG TABLET PO PRN ×2 (16:44→20:20)
[2016-11-03] MEDS: SERTRALINE HCL 50 MG TABLET PO SCH (21:25)
[2016-11-03] MEDS: POLYETHYLENE GLYCOL 3350 17 G POWD.SUSP PO SCH (21:26)
[2016-11-03] MEDS: QUETIAPINE FUMARATE 25 MG TABLET PO SCH (21:26)
[2016-11-04] MEDS: ALPRAZOLAM 0.25 MG TABLET PO PRN ×3 (01:07→19:20)
[2016-11-04] MEDS: OXYCODONE HCL 5 MG TABLET PO SCH ×6 (03:29→23:49)
[2016-11-04] MEDS: ACETAMINOPHEN 500 MG TABLET PO SCH ×4 (06:39→23:49)
--- NOTE | 2016-11-04 07:38 | PDOC43 ---
- Subjective Subjective: Reports Pain Tolerable (Pt sleepy and still confused. Dementia severe at baseline and has been pulling off her dressing. per nurses no signs of any drainge from the incision sites. Gretchen are in place.), Denies Shortness of Breath, Denies Nausea, Denies Vomiting - Objective Vital Signs Temperature 97.6 F 11/04/16 02:30 Pulse Rate 81 11/04/16 02:30 Respiratory Rate 18 11/04/16 02:30 Blood Pressure 145/72 11/04/16 02:30 O2 Saturation by Pulse Oximetry 94 11/04/16 02:30 Oxygen Delivery Method Room Air Oxygen Flow Rate 0 Laboratory 11/01/16 05:30 11/03/16 05:30 Active Medication Orders Category Date Time Status Acetaminophen [Tylenol] Med 10/29/16 12:06 Active 1,000 mg PO Q6H Alendronate Sodium [Fosamax] Med 10/31/16 07:00 Pending 70 mg PO Q7D Alprazolam [Xanax] Med 11/03/16 15:31 Active 0.5 - 1 mg PO TID PRN Ascorbic Acid [Vitamin C] Med 10/29/16 21:00 Active 500 mg PO BID Atorvastatin Calcium [Lipitor] Med 10/30/16 09:00 Active 40 mg PO DAILY Calcium Carbonate [Tums] Med 10/29/16 12:06 Active 1,000 - 2,000 mg PO Q2H PRN Calcium Carbonate/Vitamin D3 Med 10/29/16 15:00 Active 1 each PO TID Docusate Sodium [Colace] Med 10/29/16 21:00 Active 100 mg PO BID Enoxaparin Sodium [Lovenox] Med 10/30/16 09:50 Active 40 mg SUB-Q Q24H Lactulose [Enulose] Med 11/01/16 17:29 Active 10 g PO DAILY PRN Lorazepam [Ativan] Med 11/03/16 11:16 Active 0.5 mg PO Q6H PRN Magnesium Hydroxide [Milk of Magnesia] Med 10/30/16 11:46 Active 30 ml PO DAILY PRN Metoprolol Tartrate [Lopressor] Med 10/29/16 21:00 Active 12.5 mg PO BID Multivitamins [One-A-Day] Med 10/30/16 09:00 Active 1 tab PO DAILY Na Phos,M-B/Na Phos,Di-Ba [Fleet Adult Enema] Med 11/01/16 17:29 Active 1 each [place] DAILY PRN Oxycodone HCl [Roxicodone] Med 11/01/16 13:03 Active 2.5 mg PO Q3H Oxycodone HCl [Roxicodone] Med 11/01/16 13:02 Active 2.5 mg PO Q3H PRN Polyethylene Glycol 3350 [Miralax] Med 11/01/16 21:00 Active 17 g PO BEDTIME Quetiapine Fumarate [Seroquel] Med 11/01/16 13:03 Active 25 mg PO BEDTIME Sertraline HCl [Zoloft] Med 10/29/16 21:00 Active 25 mg PO BEDTIME Vitamin D3 Med 10/30/16 09:00 Active 1,000 units PO DAILY Intake and Output 11/02/16 11/03/16 11/04/16 23:59 23:59 23:59 Intake Total 1225 660 100 Output Total 450 253 Balance 775 407 100 General: Afebrile - Left Lower Extremity Incision: Ecchymosis Gross Sensation to Light Touch: Present: Deep Peroneal Nerve, Superficial Peroneal Nerve Capillary Refill: < 3 Seconds (Extensive bruising on the patient's left knee. Pt has been transferring with assistance with PT) - Problems (1) Fracture, femur closed, shaft Qualifiers: Encounter type: initial encounter Fracture morphology: oblique Fracture alignment: nondisplaced Laterality: left Qualifier Code: ( S72.335A) Nondisplaced oblique fracture of shaft of left femur, initial encounter for closed fracture Status: Acute - Disposition POD#6 s/p left femoral retrograde IMN for a femoral shaft with distal intra- articular extension WBAT with chai brace locked in extension during PT. Brace removed when patient is at bedrest. Lovenox for DVT. Patient getting up with PT assistance,; cooperation is minimal. Pain level appears less today. Somewhat agitated during night. Given IV Ativan. Pt needs to be off IV Ativan prior to discharge Plan: D/C planning Appreciate hospitalist involvement.
[2016-11-04] MEDS: LORAZEPAM 0.5 MG TABLET PO PRN ×2 (09:00→23:49)
[2016-11-04] MEDS: ASCORBIC ACID 500 MG TABLET PO SCH ×2 (09:01→20:40)
[2016-11-04] MEDS: ATORVASTATIN CALCIUM 40 MG TABLET PO SCH (09:01)
[2016-11-04] MEDS: METOPROLOL TARTRATE 25 MG TABLET PO SCH ×2 (09:05→20:39)
[2016-11-04] MEDS: DOCUSATE SODIUM 100 MG CAPSULE PO SCH ×2 (09:07→22:05)
[2016-11-04] MEDS: CALCIUM CARBONATE 600 MG/VITAMIN D3 400 UNIT/TABLET PO SCH ×3 (09:07→20:40)
[2016-11-04] MEDS: MULTIVITAMINS 1 TAB TABLET PO SCH (09:07)
[2016-11-04] MEDS: VITAMIN D3 1,000 UNITS CAP.LIQ PO SCH (09:25)
--- NOTE | 2016-11-04 09:48 | RAD ---
FEMUR LEFT HISTORY: Postop follow-up. COMPARISONS: Films dating back to 10/27/2016 FINDINGS: AP and lateral views of the left femur are obtained. Hardware from prior ORIF is present and intact. Intramedullary patricia fixation across the patient's mid to distal shaft fracture of the left femur is again noted. 3 partially threaded screws transfix the patient's prior left hip fracture. Limited assessment of the pelvis, left hip and knee are unremarkable. IMPRESSION: Satisfactory postoperative exam.
[2016-11-04] MEDS: ENOXAPARIN SODIUM 40 MG/0.4 ML SYRINGE SUB-Q SCH (11:15)
[2016-11-04] MEDS ORDERED: LACTATED RINGERS 500 ML IV ONE (11:44)
[2016-11-04] MEDS ORDERED: OXYCODONE HCL 5 MG TABLET PO SCH (12:00)
[2016-11-04] MEDS ORDERED: IV START KIT ONE (12:12)
[2016-11-04] MEDS ORDERED: SODIUM CHLORIDE 0.9% FLUSH 10 ML ONE (12:12)
[2016-11-04] MEDS ORDERED: PUMP TUBING ONE (12:54)
[2016-11-04] MEDS: D5 1/2NS with 10mEq KCL 1,000 ML IV SCH ×2 (14:01→21:53)
[2016-11-04] MEDS: SERTRALINE HCL 50 MG TABLET PO SCH (20:40)
[2016-11-04] MEDS: QUETIAPINE FUMARATE 25 MG TABLET PO SCH (20:40)
[2016-11-04] MEDS: POLYETHYLENE GLYCOL 3350 17 G POWD.SUSP PO SCH (22:05)
[2016-11-05] MEDS: ACETAMINOPHEN 500 MG TABLET PO SCH ×3 (05:27→17:13)
[2016-11-05] MEDS: ALPRAZOLAM 0.25 MG TABLET PO PRN (05:27)
[2016-11-05] MEDS: OXYCODONE HCL 5 MG TABLET PO SCH ×3 (05:27→17:12)
[2016-11-05] MEDS: D5 1/2NS with 10mEq KCL 1,000 ML IV SCH ×3 (05:28→21:28)
[2016-11-05 06:31] LABS: ABSOLUTE NEUTROPHIL COUNT 11.6 K/mm3 (1.8-7.7); BASO # 0.1 K/mm3 (0.0-0.2); BASO % 0.3 % (0.2-1.0); EOS # 0.3 (0.0-0.5); EOS % 1.8 % (0.9-2.9); HEMOGLOBIN 8.3 gm/l (12.0-16.0); IMM NEUT # 0.3 K/mm3 (0-0.2); IMM NEUT% 1.8 % (0-1); LYMPH # 1.3 (1.0-4.8); MEAN CELL VOLUME 99.2 fl (81.0-99.0); MEAN CORPUSCULAR HEMOGLOBIN 31.7 pg (27.0-31.0); MEAN CORPUSCULAR HGB CONC 31.9 g/dl (33.0-37.0); MEAN PLATELET VOLUME 10.4 fl (7.4-10.4); MONO # 1.1 (0.0-0.8); MONO % 7.5 % (4-12); NEUT % 79.6 % (43-75); PLATELET COUNT 229 K/mm3 (130-400); RED CELL DISTRIBUTION WIDTH 14.9 % (11.5-14.5)
--- NOTE | 2016-11-05 08:58 | PDOC43 ---
- Subjective Subjective: Denies Pain Tolerable (Pt could not respond to me about her pain level. Pt grossly moves her left foot and leg but not on command) - Objective Vital Signs Temperature 96.4 F 11/05/16 07:24 Pulse Rate 62 11/05/16 07:24 Respiratory Rate 22 11/05/16 07:24 Blood Pressure 125/65 11/05/16 07:24 O2 Saturation by Pulse Oximetry 90 11/05/16 07:24 Oxygen Delivery Method Room Air Oxygen Flow Rate 0 Laboratory 11/05/16 06:15 11/05/16 06:15 11/05/16 06:15 RBC 2.62 L MCV 99.2 H MCH 31.7 H MCHC 31.9 L RDW 14.9 H BUN 44 H Estimated GFR 42 L % Immature Granulocyt 1.8 H Active Medication Orders Category Date Time Status Acetaminophen [Tylenol] Med 10/29/16 12:06 Active 1,000 mg PO Q6H Alendronate Sodium [Fosamax] Med 10/31/16 07:00 Hold 70 mg PO Q7D Alprazolam [Xanax] Med 11/03/16 15:31 Active 0.5 - 1 mg PO TID PRN Ascorbic Acid [Vitamin C] Med 10/29/16 21:00 Active 500 mg PO BID Atorvastatin Calcium [Lipitor] Med 10/30/16 09:00 Active 40 mg PO DAILY Calcium Carbonate [Tums] Med 10/29/16 12:06 Active 1,000 - 2,000 mg PO Q2H PRN Calcium Carbonate/Vitamin D3 Med 10/29/16 15:00 Active 1 each PO TID D5 1/2NS with 10mEq KCL 1,000 ml Med 11/04/16 13:00 Active IV 125 mls/hr Docusate Sodium [Colace] Med 10/29/16 21:00 Active 100 mg PO BID Enoxaparin Sodium [Lovenox] Med 10/30/16 09:50 Active 40 mg SUB-Q Q24H Lactulose [Enulose] Med 11/01/16 17:29 Active 10 g PO DAILY PRN Lorazepam [Ativan] Med 11/03/16 11:16 Active 0.5 mg PO Q6H PRN Magnesium Hydroxide [Milk of Magnesia] Med 10/30/16 11:46 Active 30 ml PO DAILY PRN Metoprolol Tartrate [Lopressor] Med 10/29/16 21:00 Active 12.5 mg PO BID Multivitamins [One-A-Day] Med 10/30/16 09:00 Active 1 tab PO DAILY Na Phos,M-B/Na Phos,Di-Ba [Fleet Adult Enema] Med 11/01/16 17:29 Active 1 each [place] DAILY PRN Oxycodone HCl [Roxicodone] Med 11/01/16 13:02 Active 2.5 mg PO Q3H PRN Oxycodone HCl [Roxicodone] Med 11/04/16 18:00 Active 2.5 mg PO Q6HR Polyethylene Glycol 3350 [Miralax] Med 11/01/16 21:00 Active 17 g PO BEDTIME Quetiapine Fumarate [Seroquel] Med 11/01/16 13:03 Active 25 mg PO BEDTIME Sertraline HCl [Zoloft] Med 10/29/16 21:00 Active 25 mg PO BEDTIME Sodium Chloride 0.9% Flush [Normal Saline 10ml Flush] Med 11/04/16 12:06 Active 10 ml IV PRN PRN Sodium Chloride 0.9% Flush [Normal Saline 10ml Flush] Med 11/04/16 17:00 Active 10 ml IV Q8HR Vitamin D3 Med 10/30/16 09:00 Active 1,000 units PO DAILY Intake and Output 11/03/16 11/04/16 11/05/16 23:59 23:59 23:59 Intake Total 660 1002 1292 Output Total 253 0 Balance 407 1002 1292 General: Afebrile - Left Lower Extremity Incision: Dressing Clean/Dry/Intact Capillary Refill: < 3 Seconds (Pt has gross toe flexion and extension. Left knee lisa are in place. No signs of infection) - Problems (1) Fracture, femur closed, shaft Qualifiers: Encounter type: initial encounter Fracture morphology: oblique Fracture alignment: nondisplaced Laterality: left Qualifier Code: ( S72.335A) Nondisplaced oblique fracture of shaft of left femur, initial encounter for closed fracture Status: Acute - Disposition POD#7 s/p left femoral retrograde IMN for a femoral shaft with distal intra- articular extension WBAT with chai brace locked in extension during PT. Brace removed when patient is at bedrest. Lovenox for DVT. Patient getting up with PT assistance,; cooperation is minimal. Pain level appears less today. Somewhat agitated during night. Given IV Ativan. Pt needs to be off IV Ativan prior to discharge Plan: D/C planning for follow-up in our office in 1 week for possible staple removal Xrays performed on 11.04.2016 show good frx alignment of the femoral shaft Appreciate hospitalist involvement.
[2016-11-05] MEDS: VITAMIN D3 1,000 UNITS CAP.LIQ PO SCH (09:01)
--- NOTE | 2016-11-05 09:20 | RAD ---
CHEST-AP BEDSIDE COMPARISON: Portable chest x-ray, 10/27/2016 HISTORY: Hypoxemia after open reduction and internal fixation 6 days ago of a fracture of the left femur. FINDINGS: Views: Upright portable chest Lungs: Moderate diffuse opacities in both lungs. Heart and vessels: No acute finding. Cardiomegaly and atherosclerosis of the aorta. Trachea and bronchi: Normal Mediastinum and gabino: Retained epicardial pacing wires in the inferior mediastinum. Costophrenic sulci: Normal Chest wall and bones: Sternotomy wires. No acute finding. Upper abdomen: Normal. IMPRESSION: 1. Marked change in the appearance of the lungs compared to 10/27/2016 with bilateral diffuse pulmonary opacities, evidence of pneumonia, with asymmetric pulmonary edema less likely.
[2016-11-05] MEDS: OXYCODONE HCL 5 MG TABLET PO PRN (09:22)
[2016-11-05] MEDS: CALCIUM CARBONATE 600 MG/VITAMIN D3 400 UNIT/TABLET PO SCH ×3 (09:23→21:29)
[2016-11-05] MEDS: ASCORBIC ACID 500 MG TABLET PO SCH ×2 (09:23→21:32)
[2016-11-05] MEDS: ATORVASTATIN CALCIUM 40 MG TABLET PO SCH (09:23)
[2016-11-05] MEDS: MULTIVITAMINS 1 TAB TABLET PO SCH (09:23)
[2016-11-05] MEDS: METOPROLOL TARTRATE 25 MG TABLET PO SCH ×2 (09:23→21:32)
[2016-11-05] MEDS: DOCUSATE SODIUM 100 MG CAPSULE PO SCH ×2 (09:23→21:29)
[2016-11-05] MEDS: ENOXAPARIN SODIUM 40 MG/0.4 ML SYRINGE SUB-Q SCH (10:02)
[2016-11-05] MEDS ORDERED: LEVOFLOXACIN 750 MG/D5W 150 ML 750 MG in Premix (D5W) 150 ml Bag 1 EACH IV SCH ×4 (11:00)
--- NOTE | 2016-11-05 11:58 | PDOC43 ---
- Subjective Chief Complaint: LATE ENTRY-PROGRESS NOTE FOR 11/04/16 fall with left femur fracture; postoperative delirium Subjective: Reports Other (seems more sedated), Denies Adequate Oral Intake, Denies Fever - Objective Vital Signs Temperature 96.4 F 11/05/16 07:24 Pulse Rate 62 11/05/16 07:24 Respiratory Rate 22 11/05/16 07:24 Blood Pressure 125/65 11/05/16 07:24 O2 Saturation by Pulse Oximetry 90 11/05/16 07:24 Oxygen Delivery Method Room Air Oxygen Flow Rate 0 Intake and Output 11/04/16 11/05/16 11/06/16 06:59 06:59 06:59 Intake Total 260 2194 Output Total 200 0 Balance 60 2194 General: Other (somnolent) HEENT: Mucous membr. moist/pink Lungs: Diminished at Bases Cardiovascular: Regular Rate and Rhythm Abdomen: Soft, Normal Bowel Sounds, Non-Distended, No Tenderness Skin: Warm, Dry, Intact Wound: Dressing Clean/Dry/Intact Psych/Mental Status: Other ([id number]/15) Laboratory 11/05/16 06:15 11/05/16 06:15 11/05/16 06:15 RBC 2.62 L MCV 99.2 H MCH 31.7 H MCHC 31.9 L RDW 14.9 H BUN 44 H Estimated GFR 42 L % Immature Granulocyt 1.8 H Current Medications: Current meds reviewed in EMR. - Problems: Assessment/Plan (1) Acute blood loss anemia Status: AcuteAssessment/Plan: Due to fracture and expected to increase with surgery. stable. Will recheck in am (2) Delirium Status: AcuteAssessment/Plan: Patient with some postoperative delirium, c/w metabolic encephalopathy, due to postop status, pain medications, disturbed sleep, dementia. On seroquel; now with decreased LOC-will change Oxycodone to Q6h (3) Fracture, femur closed, shaft Qualifiers: Encounter type: initial encounter Fracture morphology: oblique Fracture alignment: nondisplaced Laterality: left Qualifier Code: ( S72.335A) Nondisplaced oblique fracture of shaft of left femur, initial encounter for closed fracture Status: AcuteAssessment/Plan: S/P repair in OR 10/29/16. Appreciate orthopedic care. (4) Dementia Qualifiers: Dementia type: Alzheimer's disease Alzheimer's disease onset: late- onset Dementia behavioral disturbance: without behavioral disturbance Qualifier Code: (G30.1) Alzheimer's disease with late onset Status: Chronic Assessment/Plan: No history of behavioral disturbances (did have postop delirium on previous times as well), but now having pain and anxiety. Trying to limit lorazapam and avoid haloperidol. Quetiapine started (5) CKD (chronic kidney disease) stage 3, GFR 30-59 ml/min Status: ChronicAssessment/Plan: stable, following. GFR 45. (6) Dehydration Status: AcuteAssessment/Plan: Patient with minimal PO intake and drop in urine output, possibly due to excessive sedation, but dementia and meds playing a role as well-adjust oxycodone dose and start IVF VTE Prophylaxis: Enoxaparin and mechanical Disposition: Likely SNF rehab in 1-2 days, but delirium/agitation a problem for placement and must be off IV behavioral meds for 24-48hrs.
--- NOTE | 2016-11-05 12:14 | PDOC43 ---
- Subjective Chief Complaint: fall with left femur fracture; postoperative delirium Subjective: Reports Other (hypoxia noted this am), Denies Tolerating Diet Well, Denies Adequate Oral Intake, Denies Fever - Objective Vital Signs Temperature 96.4 F 11/05/16 07:24 Pulse Rate 62 11/05/16 07:24 Respiratory Rate 22 11/05/16 07:24 Blood Pressure 125/65 11/05/16 07:24 O2 Saturation by Pulse Oximetry 90 11/05/16 07:24 Oxygen Delivery Method Room Air Oxygen Flow Rate 0 Intake and Output 11/04/16 11/05/16 11/06/16 06:59 06:59 06:59 Intake Total 260 2194 Output Total 200 0 Balance 60 2194 General: Other (somnolent but easily roused) Lungs: Diminished at Bases (with ronchi) Cardiovascular: Regular Rate and Rhythm Abdomen: Soft, Normal Bowel Sounds, Non-Distended, No Tenderness Extremities: No Edema Wound: Dressing Clean/Dry/Intact Psych/Mental Status: Other ([id number]) Laboratory 11/05/16 06:15 11/05/16 06:15 11/05/16 06:15 RBC 2.62 L MCV 99.2 H MCH 31.7 H MCHC 31.9 L RDW 14.9 H BUN 44 H Estimated GFR 42 L % Immature Granulocyt 1.8 H Current Medications: Current meds reviewed in EMR. - Problems: Assessment/Plan (1) Acute blood loss anemia Status: AcuteAssessment/Plan: Due to fracture and expected to increase with surgery. HGB down to 8.3-will follow (2) Delirium Status: AcuteAssessment/Plan: Patient with some postoperative delirium, c/w metabolic encephalopathy, due to postop status, pain medications, disturbed sleep, dementia. On seroquel; now with decreased LOC-will make NPO and use morphine PRN due to concerns about swallowing safely (3) Fracture, femur closed, shaft Qualifiers: Encounter type: initial encounter Fracture morphology: oblique Fracture alignment: nondisplaced Laterality: left Qualifier Code: ( S72.335A) Nondisplaced oblique fracture of shaft of left femur, initial encounter for closed fracture Status: AcuteAssessment/Plan: S/P repair in OR 10/29/16. Appreciate orthopedic care. (4) Dementia Qualifiers: Dementia type: Alzheimer's disease Alzheimer's disease onset: late- onset Dementia behavioral disturbance: without behavioral disturbance Qualifier Code: (G30.1) Alzheimer's disease with late onset Status: Chronic Assessment/Plan: No history of behavioral disturbances (did have postop delirium on previous times as well), but now having pain and anxiety. Trying to limit lorazapam and avoid haloperidol. Quetiapine stopped due to interactions with Levaquin but will restart in am if needed due to plan to change to Clindamycin (5) CKD (chronic kidney disease) stage 3, GFR 30-59 ml/min Status: ChronicAssessment/Plan: stable, following. GFR 45. (6) Dehydration Status: AcuteAssessment/Plan: Patient with minimal PO intake and drop in urine output some improvement with IVF-suspect that she is aspirating, keep NPO, consult with Dr Benton for PEG placement in am (7) Aspiration pneumonia Qualifiers: Aspiration pneumonia type: unspecified Laterality: bilateral Status: AcuteAssessment/Plan: associated with mild hypoxia-initially given Levaquin but will switch to Clindamycin VTE Prophylaxis: mechanical, stopping Lovenox due to plan for PEG in am Disposition: Likely SNF rehab in 1-2 days, but delirium/agitation a problem for placement and must be off IV behavioral meds for 24-48hrs. Also will need to be stable on tube feeding
[2016-11-05] MEDS: MORPHINE SULFATE 2 MG/ML SYRINGE IV PRN ×2 (14:45→15:03)
[2016-11-05] MEDS ORDERED: LORAZEPAM 2 MG/ML 1ML SDV ONE (15:30)
[2016-11-05] MEDS: LORAZEPAM 2 MG/ML 1ML SDV IV PRN ×2 (15:38→21:28)
[2016-11-05] MEDS: CLINDAMYCIN 600 MG PREMIX 600 MG in Premix (D5W) 50 ml 1 EACH IV SCH ×2 (16:00→16:01)
[2016-11-05] MEDS: MORPHINE SULFATE 4 MG/ML SYRINGE IV PRN ×2 (19:21→21:28)
[2016-11-05] MEDS: POLYETHYLENE GLYCOL 3350 17 G POWD.SUSP PO SCH (21:32)
[2016-11-05] MEDS: SERTRALINE HCL 50 MG TABLET PO SCH (21:32)
[2016-11-06] MEDS: MORPHINE SULFATE 4 MG/ML SYRINGE IV PRN ×2 (00:13→03:04)
[2016-11-06] MEDS: CLINDAMYCIN 600 MG PREMIX 600 MG in Premix (D5W) 50 ml 1 EACH IV SCH ×3 (00:13→16:40)
[2016-11-06] MEDS: OXYCODONE HCL 5 MG TABLET PO SCH ×2 (00:15→06:24)
[2016-11-06] MEDS: OXYCODONE HCL 5 MG TABLET PO PRN (00:15)
[2016-11-06] MEDS: ACETAMINOPHEN 500 MG TABLET PO SCH ×2 (02:20→05:40)
[2016-11-06] MEDS: LORAZEPAM 2 MG/ML 1ML SDV IV PRN ×2 (04:16→17:28)
[2016-11-06] MEDS ORDERED: LACTATED RINGERS 1,000 ML IV SCH (06:30)
[2016-11-06] MEDS ORDERED: IV START KIT ONE (07:32)
[2016-11-06] MEDS ORDERED: LACTATED RINGERS 1,000 ML ONE (07:32)
[2016-11-06] MEDS ORDERED: PROPOFOL 20 ML IV ONE (08:11)
[2016-11-06] MEDS ORDERED: FENTANYL 100 MCG/2 ML VIAL ONE ×2 (08:11→08:32)
[2016-11-06] MEDS ORDERED: ALBUTEROL/IPRATROPIUM 2.5/0.5 MG 3 ML/EACH DOSE ONE (09:49)
[2016-11-06] MEDS ORDERED: ALBUTEROL/IPRATROPIUM 2.5/0.5 MG 3 ML/EACH DOSE NEB ONE (09:51)
[2016-11-06] MEDS ORDERED: LEVOFLOXACIN 500 MG/D5W 100 ML 500 MG in Premix (D5W) 100 ml 1 EACH IV SCH (11:45)
--- NOTE | 2016-11-06 11:53 | PDOC43 ---
- Subjective Chief Complaint: fall with left femur fracture; dementia; postoperative delirium; post-op pneumonia PEG placement this AM. - Objective Vital Signs Temperature 98.1 F 11/06/16 10:45 Pulse Rate 67 11/06/16 10:45 Respiratory Rate 20 11/06/16 10:45 Blood Pressure 117/65 11/06/16 10:45 O2 Saturation by Pulse Oximetry 96 11/06/16 10:45 Oxygen Delivery Method Nasal Cannula Oxygen Flow Rate 5 Intake and Output 11/05/16 11/06/16 11/07/16 06:59 06:59 06:59 Intake Total 2194 897 Output Total 0 440 Balance 2194 457 General: Other (Somnolent after PEG procedure.) Lungs: Other (Coarse all ko B.) Cardiovascular: Regular Rate and Rhythm Abdomen: Soft, Normal Bowel Sounds, Other (Dressings over PEG C/D/I.) Psych/Mental Status: Other (Somnolent after PEG procedure this AM.) Current Medications: Current meds reviewed in EMR. - Problems: Assessment/Plan (1) Fracture, femur closed, shaft Qualifiers: Encounter type: initial encounter Fracture morphology: oblique Fracture alignment: nondisplaced Laterality: left Qualifier Code: ( S72.335A) Nondisplaced oblique fracture of shaft of left femur, initial encounter for closed fracture Status: AcuteAssessment/Plan: Now POD #8 S/P repair in OR 10/29/16. Con't orthopedic care. Post-op complicated by delirium and medical issues- see below. (2) Delirium Status: AcuteAssessment/Plan: Patient with some postoperative delirium, c/w metabolic encephalopathy, due to postop status, pain medications, disturbed sleep, dementia. Over last 48 hrs developed decreased LOC and new post-op pna presumed to be aspiration/HCAP. Unable to swallow safely- PEG tube placed this AM after family conference. Now will con't with scheduled seroquel and prn ativan per GT. (3) Pneumonia Qualifiers: Pneumonia type: due to unspecified organism Laterality: bilateral Status: AcuteAssessment/Plan: Post operative pna dx'ed 11/05. Presumed bacterial- cx pending. Concern for aspiration given clinical picture but also c/w HCAP. Will broaden abx to Zosyn/ Levaquin/Clinda. Con't supportive care. (4) Dementia Qualifiers: Dementia type: Alzheimer's disease Alzheimer's disease onset: late- onset Dementia behavioral disturbance: without behavioral disturbance Qualifier Code: (G30.1) Alzheimer's disease with late onset Status: Chronic Assessment/Plan: Advanced at baseline with progression in last several months necessitating move to higher level of care 2 weeks ago. No history of behavioral disturbances (did have postop delirium on previously). PEG tube placed after family conference with plan to trial for a few weeks to see if she recovers as she has in the past. (5) Dehydration Status: AcuteAssessment/Plan: Due to minimal po intake over last few days- resolved with IVF. Now with PEG tube as above. (6) HTN (hypertension) Qualifiers: Hypertension type: essential hypertension Qualifier Code: (I10) Essential (primary) hypertension Status: ChronicAssessment/Plan: Con't metoprolol per GT. VTE Prophylaxis: Lovenox. Disposition: Anticipate SNF vs ICF in 2-3 days.
[2016-11-06] MEDS: ALBUTEROL NEB 2.5 MG/3 ML VIAL.NEB NEB PRN (12:10)
[2016-11-06] MEDS: CALCIUM CARBONATE 600 MG/VITAMIN D3 400 UNIT/TABLET PO SCH (12:16)
[2016-11-06] MEDS: D5 1/2NS with 10mEq KCL 1,000 ML IV SCH (12:16)
[2016-11-06] MEDS: DOCUSATE SODIUM 100 MG CAPSULE PO SCH (12:16)
[2016-11-06] MEDS: VITAMIN D3 1,000 UNITS CAP.LIQ PO SCH (12:17)
[2016-11-06] MEDS: METOPROLOL TARTRATE 25 MG TABLET PO SCH (12:17)
[2016-11-06] MEDS: MULTIVITAMINS 1 TAB TABLET PO SCH (12:17)
[2016-11-06] MEDS: ATORVASTATIN CALCIUM 40 MG TABLET PO SCH (12:17)
[2016-11-06] MEDS: ASCORBIC ACID 500 MG TABLET PO SCH (12:17)
[2016-11-06] MEDS: LACTATED RINGERS 1,000 ML IV SCH ×2 (12:40→21:17)
[2016-11-06] MEDS: PANTOPRAZOLE SODIUM 40 MG VIAL IV SCH (13:51)
[2016-11-06] MEDS: PIPERACILLIN-TAZO PREMIX BAG 3.375 G in Premix (D5W) 50 ml 1 EACH IV SCH ×2 (13:51→19:45)
[2016-11-06] MEDS: MORPHINE SULFATE 2 MG/ML SYRINGE IV PRN ×3 (16:40→23:44)
[2016-11-06] MEDS ORDERED: WATER FOR IRRIG,STERILE 500 ML BOT ONE (17:18)
[2016-11-06] MEDS: QUETIAPINE FUMARATE 25 MG TABLET GT SCH (20:35)
[2016-11-06] MEDS: METOPROLOL TARTRATE 25 MG TABLET GT SCH (20:36)
[2016-11-06] MEDS: SERTRALINE HCL 50 MG TABLET GT SCH (20:36)
[2016-11-06] MEDS ORDERED: QUETIAPINE FUMARATE 25 MG TABLET PO SCH (21:00)
[2016-11-06] MEDS ORDERED: QUETIAPINE FUMARATE 25 MG TABLET GT SCH (21:00)
[2016-11-06] MEDS: LORAZEPAM 0.5 MG TABLET GT PRN (23:44)
[2016-11-07] MEDS: CLINDAMYCIN 600 MG PREMIX 600 MG in Premix (D5W) 50 ml 1 EACH IV SCH ×3 (01:48→16:30)
[2016-11-07] MEDS ORDERED: IV START KIT ONE ×3 (02:11→16:36)
[2016-11-07] MEDS: PIPERACILLIN-TAZO PREMIX BAG 3.375 G in Premix (D5W) 50 ml 1 EACH IV SCH ×4 (02:29→20:23)
[2016-11-07] MEDS: MORPHINE SULFATE 4 MG/ML SYRINGE IV PRN ×4 (02:33→18:46)
[2016-11-07] MEDS ORDERED: BLISTEX LIPSTICK 1 EACH TP PRN (02:47)
[2016-11-07] MEDS: ALBUTEROL NEB 2.5 MG/3 ML VIAL.NEB NEB PRN (05:45)
[2016-11-07 06:30] LABS: HEMATOCRIT 23.9 % (37.0-47.0); HEMOGLOBIN 7.6 gm/l (12.0-16.0); MEAN CELL VOLUME 103.5 fl (81.0-99.0); MEAN CORPUSCULAR HEMOGLOBIN 32.9 pg (27.0-31.0); MEAN CORPUSCULAR HGB CONC 31.8 g/dl (33.0-37.0); RED CELL DISTRIBUTION WIDTH 15.9 % (11.5-14.5)
[2016-11-07 06:49] LABS: ALB/GLOB RATIO 1.2 (>1.0); ALBUMIN 2.7 gm/dL (3.5-5.7); CALCIUM 8.3 mg/dL (8.6-10.3); MAGNESIUM 1.9 mg/dL (1.9-2.7)
--- NOTE | 2016-11-07 07:01 | PDOC43 ---
- Subjective Subjective: Denies Pain Tolerable (Pt confused at baseline.) - Objective Vital Signs Temperature 97.8 F 11/07/16 04:20 Pulse Rate 79 11/07/16 05:47 Respiratory Rate 28 11/07/16 05:47 Blood Pressure 106/51 11/07/16 04:20 O2 Saturation by Pulse Oximetry 85 11/07/16 05:47 Oxygen Delivery Method Simple Mask Oxygen Flow Rate 7 Laboratory 11/07/16 06:25 11/07/16 06:25 11/07/16 11/07/16 06:25 02:38 RBC 2.31 L MCV 103.5 H MCH 32.9 H MCHC 31.8 L RDW 15.9 H BUN 38 H Estimated GFR 39 L POC Capillary Glucose 154 H Calcium 8.3 L Total Bilirubin 2.2 H AST 74 H ALT 66 H Total Protein 4.9 L Albumin 2.7 L Globulin 2.2 L Active Medication Orders Category Date Time Status Albuterol Sulf Neb 2.5mg/3ml [Ventolin Inhalation Med 11/06/16 11:35 Active Solution (Dose)] 2.5 mg NEB Q2H PRN Clindamycin 600 mg Premix [Cleocin-D5w 600 mg/50 ml] Med 11/05/16 16:00 Active 600 mg Premix (D5W) 50 ml 1 each IV Q8H Enoxaparin Sodium [Lovenox] Med 10/30/16 09:50 Hold 40 mg SUB-Q Q24H Lactated Ringers 1,000 ml Med 11/06/16 09:15 Hold IV 100 mls/hr Levofloxacin 750 mg/D5w 150 ml [Levaquin IV 750 mg] 750 Med 11/07/16 11:00 Active mg Premix (D5W) 150 ml Bag 1 each IV Q48H Lip [place] [Blistex] Med 11/07/16 02:47 Active 1 each TP PRN PRN Lorazepam [Ativan] Med 11/05/16 15:27 Active 0.25 - 0.5 mg IV Q4H PRN Lorazepam [Ativan] Med 11/06/16 11:32 Active 0.5 mg GT Q6H PRN Metoprolol Tartrate [Lopressor] Med 11/06/16 11:31 Active 12.5 mg GT BID Morphine Sulfate Med 11/05/16 11:50 Active 2 - 4 mg IV Q2H PRN Morphine Sulfate Med 11/05/16 11:54 Active 2 - 4 mg IV Q2H PRN Na Phos,M-B/Na Phos,Di-Ba [Fleet Adult Enema] Med 11/01/16 17:29 Active 1 each [place] DAILY PRN Pantoprazole Sodium [Protonix] Med 11/06/16 13:00 Active 40 mg IV Q24H Piperacillin-Tazo Premix Bag [Zosyn 3.375 G] 3.375 g Med 11/06/16 13:00 Active Premix (D5W) 50 ml 1 each IV Q6H Quetiapine Fumarate [Seroquel] Med 11/06/16 21:00 Active 25 mg GT BID Sertraline HCl [Zoloft] Med 11/06/16 11:31 Active 25 mg GT BEDTIME Sodium Chloride 0.9% Flush [Normal Saline 10ml Flush] Med 11/04/16 12:06 Active 10 ml IV PRN PRN Sodium Chloride 0.9% Flush [Normal Saline 10ml Flush] Med 11/04/16 17:00 Active 10 ml IV Q8HR Intake and Output 11/05/16 11/06/16 11/07/16 23:59 23:59 23:59 Intake Total 2189 2220 1491 Output Total 175 673 282 Balance 2014 1547 1209 General: Afebrile - Left Lower Extremity Incision: Dressing Clean/Dry/Intact Capillary Refill: < 3 Seconds (Pt has gross left knee motion and foot motion) - Right Lower Extremity Incision: Dressing Clean/Dry/Intact Capillary Refill: < 3 Seconds (pt has) - Problems (1) Fracture, femur closed, shaft Qualifiers: Encounter type: initial encounter Fracture morphology: oblique Fracture alignment: nondisplaced Laterality: left Qualifier Code: ( S72.335A) Nondisplaced oblique fracture of shaft of left femur, initial encounter for closed fracture Status: Acute - Disposition POD#9 s/p left femoral retrograde IMN for a femoral shaft with distal intra- articular extension WBAT with chai brace locked in extension during PT. Brace removed when patient is at bedrest. Lovenox for DVT. Patient getting up with PT assistance,; cooperation is minimal. Pt continues to refuse oral meds and Peg tube placed yesterday Plan: D/C planning for follow-up in our office in 1 week for possible staple removal Xrays performed on 11.04.2016 show good frx alignment of the femoral shaft Appreciate hospitalist involvement.
[2016-11-07] MEDS: LACTATED RINGERS 1,000 ML IV SCH (07:25)
[2016-11-07] MEDS: QUETIAPINE FUMARATE 25 MG TABLET GT SCH ×2 (08:22→20:44)
[2016-11-07] MEDS: ENOXAPARIN SODIUM 40 MG/0.4 ML SYRINGE SUB-Q SCH (10:18)
[2016-11-07] MEDS: METOPROLOL TARTRATE 25 MG TABLET GT SCH ×2 (10:23→20:45)
[2016-11-07] MEDS ORDERED: LEVOFLOXACIN 750 MG/D5W 150 ML 750 MG in Premix (D5W) 150 ml Bag 1 EACH IV SCH (11:00)
[2016-11-07] MEDS ORDERED: SODIUM CHLORIDE 0.9% 100 ML IV ONE (13:18)
[2016-11-07] MEDS: PANTOPRAZOLE SODIUM 40 MG VIAL IV SCH (13:22)
[2016-11-07] MEDS ORDERED: FUROSEMIDE 40 MG/4 ML VIAL IV ONE (14:01)
--- NOTE | 2016-11-07 14:08 | PDOC43 ---
- Subjective Chief Complaint: fall with left femur fracture; dementia; postoperative delirium; post-op pneumonia Unresponsive GCS 7 - Objective Vital Signs Temperature 97.6 F 11/07/16 11:24 Pulse Rate 60 11/07/16 11:24 Respiratory Rate 28 11/07/16 11:24 Blood Pressure 115/58 11/07/16 11:24 O2 Saturation by Pulse Oximetry 90 11/07/16 11:24 Oxygen Delivery Method Simple Mask Oxygen Flow Rate 6 Intake and Output 11/06/16 11/07/16 11/08/16 06:59 06:59 06:59 Intake Total 897 3711 Output Total 440 690 Balance 457 3021 General: No Alert, No Oriented x3, No Cooperative, No Acute Distress HEENT: Other (NRB mask on, lips cyanotic) Lungs: Other (poor air movement, crackles) Cardiovascular: Regular Rate and Rhythm Abdomen: Soft, Normal Bowel Sounds, Other (Peg in place and functional), No Tenderness, No Masses Extremities: Pulses Diminished but Palpable, Other (fingers cyanotic and cold), No Edema Neurological: Other (obtunded, GCS 7) Laboratory 11/07/16 06:25 11/07/16 06:25 11/07/16 11/07/16 11/07/16 12:16 07:18 06:25 RBC 2.31 L MCV 103.5 H MCH 32.9 H MCHC 31.8 L RDW 15.9 H BUN 38 H Estimated GFR 39 L POC Capillary Glucose 160 H 143 H Calcium 8.3 L Total Bilirubin 2.2 H AST 74 H ALT 66 H Total Protein 4.9 L Albumin 2.7 L Globulin 2.2 L 11/07/16 02:38 RBC MCV MCH MCHC RDW BUN Estimated GFR POC Capillary Glucose 154 H Calcium Total Bilirubin AST ALT Total Protein Albumin Globulin Current Medications: Current meds reviewed in EMR. - Problems: Assessment/Plan (1) Fracture, femur closed, shaft Qualifiers: Encounter type: initial encounter Fracture morphology: oblique Fracture alignment: nondisplaced Laterality: left Qualifier Code: ( S72.335A) Nondisplaced oblique fracture of shaft of left femur, initial encounter for closed fracture Status: AcuteAssessment/Plan: Now POD #9 S/P repair in OR 10/29/16. Con't orthopedic care. Post-op complicated by delirium and medical issues- see below. (2) Acute blood loss anemia Status: AcuteAssessment/Plan: Continues to decline, discuss transfusion with family. (3) Dementia Qualifiers: Dementia type: Alzheimer's disease Alzheimer's disease onset: late- onset Dementia behavioral disturbance: without behavioral disturbance Qualifier Code: (G30.1) Alzheimer's disease with late onset Status: Chronic Assessment/Plan: Advanced at baseline with progression in last several months necessitating move to higher level of care 2 weeks prior to admit. No history of behavioral disturbances (did have postop delirium on previously). PEG tube placed after family conference with plan to trial for a few weeks to see if she recovers as she has in the past. (4) Diastolic CHF Qualifiers: Congestive heart failure chronicity: chronic Qualifier Code: (I50.32) Chronic diastolic (congestive) heart failure Status: ChronicAssessment/Plan : Chronic diagnosis associated with pulmonary HTN. (not [place]). Not on diuretics at home, follow closely and decrease fluid infusion. Suspect the single documented saturation of 83% was an error as it was two minutes after a normal saturation of 92% on Room Air. 11/07 CHF may be contributing to hypoxemia and I/O has been positive, give furosemide IV and follow. (5) Osteopenia Qualifiers: Osteopenia location: multiple sites Qualifier Code: (M85.89) Other specified disorders of bone density and structure, multiple sites Status: ChronicAssessment/Plan: With fragility fracture gives her the diagnosis of osteoporosis. Start Ca/Vit D , resume Alendronate (6) HLD (hyperlipidemia) Qualifiers: Hyperlipidemia type: mixed hyperlipidemia Qualifier Code: (E78.2) Mixed hyperlipidemia Status: ChronicAssessment/Plan: stable (7) CKD (chronic kidney disease) stage 3, GFR 30-59 ml/min Status: ChronicAssessment/Plan: stable, following. (8) HTN (hypertension) Qualifiers: Hypertension type: essential hypertension Qualifier Code: (I10) Essential (primary) hypertension Status: ChronicAssessment/Plan: Con't metoprolol per GT. (9) Pneumonia Qualifiers: Pneumonia type: due to unspecified organism Laterality: bilateral Status: AcuteAssessment/Plan: Post operative pna dx'ed 11/05. Presumed bacterial- cx pending. Concern for aspiration given clinical picture but also c/w HCAP. Abx changed on 11/06 to Zosyn/Levaquin/Clinda. With increasing hypoxemic respiratory failure prognosis is guarded. VTE Prophylaxis: Lovenox. Disposition: Anticipate SNF vs ICF in 2-3 days.
[2016-11-07] MEDS: MORPHINE SULFATE 2 MG/ML SYRINGE IV PRN ×3 (14:44→22:45)
[2016-11-07] MEDS ORDERED: SODIUM CHLORIDE 0.9% FLUSH 10 ML ONE ×2 (14:50→16:36)
[2016-11-07 14:53] LABS: URINE BILIRUBIN NEGATIVE (NEGATIVE); URINE BLOOD TRACE (NEGATIVE); URINE GLUCOSE (UA) NEGATIVE (NEGATIVE); URINE LEUKOCYTE ESTERASE 2+ (NEGATIVE); URINE NITRITE NEGATIVE (NEGATIVE); URINE PROTEIN 1+ (NEGATIVE); URINE UROBILINOGEN NORMAL (0-1 mg/dl)
[2016-11-07 14:54] LABS: URINE APPEARANCE SL CLOUDY; URINE COLOR AMBER
[2016-11-07 15:06] LABS: URINE BACTERIA 3+ BACILLI; URINE EPITHELIAL CELLS OCCASIONAL /hpf; URINE RBC 0 /hpf; URINE WBC 50-100 /hpf
[2016-11-07] MEDS ORDERED: WATER FOR IRRIG,STERILE 500 ML BOT ONE (16:16)
[2016-11-07] MEDS: LORAZEPAM 0.5 MG TABLET GT PRN (16:20)
[2016-11-07] MEDS ORDERED: LORAZEPAM 0.5 MG TABLET ONE (17:45)
[2016-11-07] MEDS: LORAZEPAM 1 MG TABLET PEG PRN (17:54)
[2016-11-07] MEDS: LORAZEPAM 2 MG/ML 1ML SDV IV PRN (20:45)
[2016-11-07] MEDS: SERTRALINE HCL 50 MG TABLET GT SCH (20:45)
[2016-11-08] MEDS ORDERED: SODIUM CHLORIDE 0.9% 100 ML IV ONE (00:13)
[2016-11-08] MEDS: LORAZEPAM 2 MG/ML 1ML SDV IV PRN ×3 (00:28→06:23)
[2016-11-08] MEDS: MORPHINE SULFATE 2 MG/ML SYRINGE IV PRN ×4 (00:28→11:18)
[2016-11-08] MEDS ORDERED: PUMP TUBING ONE (00:30)
[2016-11-08] MEDS: CLINDAMYCIN 600 MG PREMIX 600 MG in Premix (D5W) 50 ml 1 EACH IV SCH ×2 (00:32→08:11)
[2016-11-08] MEDS: PIPERACILLIN-TAZO PREMIX BAG 3.375 G in Premix (D5W) 50 ml 1 EACH IV SCH ×3 (01:06→13:08)
[2016-11-08] MEDS: ALBUTEROL NEB 2.5 MG/3 ML VIAL.NEB NEB PRN ×3 (01:11→12:41)
[2016-11-08] MEDS ORDERED: FUROSEMIDE 40 MG/4 ML VIAL IV ONE (01:39)
[2016-11-08] MEDS: MORPHINE SULFATE 4 MG/ML SYRINGE IV PRN (03:56)
[2016-11-08 06:30] LABS: HEMATOCRIT 28.1 % (37.0-47.0); HEMOGLOBIN 8.8 gm/l (12.0-16.0); MEAN CELL VOLUME 104.1 fl (81.0-99.0); MEAN CORPUSCULAR HEMOGLOBIN 32.6 pg (27.0-31.0); MEAN CORPUSCULAR HGB CONC 31.3 g/dl (33.0-37.0); RED CELL DISTRIBUTION WIDTH 17.5 % (11.5-14.5)
[2016-11-08 06:57] LABS: ALB/GLOB RATIO 1.2 (>1.0); ALBUMIN 3.1 gm/dL (3.5-5.7); CALCIUM 8.7 mg/dL (8.6-10.3)
[2016-11-08] MEDS: METOPROLOL TARTRATE 25 MG TABLET GT SCH ×2 (08:11→20:42)
[2016-11-08] MEDS: ACETAMINOPHEN 325 MG TABLET PEG SCH ×3 (08:12→20:42)
[2016-11-08] MEDS: QUETIAPINE FUMARATE 25 MG TABLET GT SCH ×2 (08:12→20:46)
--- NOTE | 2016-11-08 08:20 | PDOC43 ---
- Subjective Chief Complaint: fall with left femur fracture; dementia; postoperative delirium; post-op pneumonia Moaning and writhing but no specific response to voice or exam. - Objective Vital Signs Temperature 97.5 F 11/08/16 07:57 Pulse Rate 67 11/08/16 07:57 Respiratory Rate 26 11/08/16 07:57 Blood Pressure 116/59 11/08/16 07:57 O2 Saturation by Pulse Oximetry 94 11/08/16 07:57 Oxygen Delivery Method Nasal Cannula Oxygen Flow Rate 6 Intake and Output 11/07/16 11/08/16 11/09/16 06:59 06:59 06:59 Intake Total 3711 1540 Output Total 690 976 Balance 3021 564 General: Moderate Distress, No Alert, No Oriented x3, No Cooperative HEENT: Other (mouth dry) Lungs: Clear to Auscultation Bilaterally Cardiovascular: Regular Rate and Rhythm Abdomen: Soft, Tenderness (increased moaning with palpation), Hypoactive Bowel Sounds, No Masses Extremities: Pulses Diminished but Palpable, Other (lisa/wounds intact on left thigh), No Edema Skin: Normal Color Neurological: Other (GCS 7) Laboratory 11/08/16 05:10 11/08/16 05:10 11/08/16 11/08/16 11/08/16 06:00 05:10 01:12 RBC 2.70 L MCV 104.1 H MCH 32.6 H MCHC 31.3 L RDW 17.5 H BUN 39 H Estimated GFR 26 L POC Capillary Glucose 142 H 196 H Total Bilirubin 2.2 H AST 50 H ALT 61 H Total Protein 5.6 L Albumin 3.1 L 11/07/16 11/07/16 11/07/16 20:36 18:49 12:16 RBC MCV MCH MCHC RDW BUN Estimated GFR POC Capillary Glucose 154 H 145 H 160 H Total Bilirubin AST ALT Total Protein Albumin Current Medications: Current meds reviewed in EMR. - Problems: Assessment/Plan (1) Fracture, femur closed, shaft Qualifiers: Encounter type: initial encounter Fracture morphology: oblique Fracture alignment: nondisplaced Laterality: left Qualifier Code: ( S72.335A) Nondisplaced oblique fracture of shaft of left femur, initial encounter for closed fracture Status: AcuteAssessment/Plan: S/P repair in OR 10/29/16. Con't orthopedic care. Post-op complicated by delirium and medical issues- see below. (2) Acute blood loss anemia Status: AcuteAssessment/Plan: Stable, improved due to diuresis. (3) Dementia Qualifiers: Dementia type: Alzheimer's disease Alzheimer's disease onset: late- onset Dementia behavioral disturbance: without behavioral disturbance Qualifier Code: (G30.1) Alzheimer's disease with late onset Status: Chronic Assessment/Plan: Advanced at baseline with progression in last several months necessitating move to higher level of care 2 weeks prior to admit. No history of behavioral disturbances (did have postop delirium on previously). PEG tube placed after family conference with plan to trial for a few weeks to see if she recovers as she has in the past. (4) Diastolic CHF Qualifiers: Congestive heart failure chronicity: chronic Qualifier Code: (I50.32) Chronic diastolic (congestive) heart failure Status: ChronicAssessment/Plan : Chronic diagnosis associated with pulmonary HTN. (not [place]). Not on diuretics at home, follow closely and decrease fluid infusion. Suspect the single documented saturation of 83% was an error as it was two minutes after a normal saturation of 92% on Room Air. / CHF may be contributing to hypoxemia and I/O has been positive, give furosemide IV and follow. /18 O2 requirement reduced and lung exam improved with diuresis. (5) Osteopenia Qualifiers: Osteopenia location: multiple sites Qualifier Code: (M85.89) Other specified disorders of bone density and structure, multiple sites Status: ChronicAssessment/Plan: With fragility fracture gives her the diagnosis of osteoporosis. Start Ca/Vit D , resume Alendronate (6) HLD (hyperlipidemia) Qualifiers: Hyperlipidemia type: mixed hyperlipidemia Qualifier Code: (E78.2) Mixed hyperlipidemia Status: ChronicAssessment/Plan: stable (7) CKD (chronic kidney disease) stage 3, GFR 30-59 ml/min Status: ChronicAssessment/Plan: creatinine increased with diuresis (8) HTN (hypertension) Qualifiers: Hypertension type: essential hypertension Qualifier Code: (I10) Essential (primary) hypertension Status: ChronicAssessment/Plan: Con't metoprolol per GT. (9) Pneumonia Qualifiers: Pneumonia type: due to unspecified organism Laterality: bilateral Status: AcuteAssessment/Plan: Post operative pna dx'ed 2/15. Presumed bacterial- cx pending. Concern for aspiration given clinical picture but also c/w HCAP. Abx changed on 11/06 to Zosyn/Levaquin/Clinda. With increasing hypoxemic respiratory failure prognosis is guarded. VTE Prophylaxis: Lovenox. Disposition: Anticipate SNF vs ICF in 2-3 days.
[2016-11-08] MEDS: ENOXAPARIN SODIUM 40 MG/0.4 ML SYRINGE SUB-Q SCH (09:03)
[2016-11-08] MEDS: TRAMADOL HCL 50 MG TABLET GT SCH ×3 (09:03→20:43)
--- NOTE | 2016-11-08 09:23 | RAD ---
CHEST-AP BEDSIDE COMPARISON: Portable chest x-ray, 11/05/2016 HISTORY: Follow-up pneumonia and congestive heart failure. FINDINGS: Views: AP upright portable chest the Lungs: No change. Bilateral opacities, both upper lobes of both lower lobes. Heart and vessels: Cardiomegaly. Vessels not enlarged. Trachea and bronchi: Normal Mediastinum and gabino: Normal Costophrenic sulci: Normal Chest wall and bones: No scar acute finding. Sternotomy wires. Upper abdomen: No acute finding. IMPRESSION: Bilateral pulmonary infiltrates. Pneumonia is favored over congestive heart failure.
--- NOTE | 2016-11-08 10:23 | PDOC43 ---
- Subjective Findings: Minimal response, patient resting in bed. - Objective Vital Signs Temperature 98.0 F 11/08/16 08:27 Pulse Rate 78 11/08/16 08:30 Respiratory Rate 22 11/08/16 08:30 Blood Pressure 123/58 11/08/16 08:27 O2 Saturation by Pulse Oximetry 92 11/08/16 08:30 Oxygen Delivery Method Simple Mask Oxygen Flow Rate 6 Laboratory 11/08/16 05:10 11/08/16 05:10 11/08/16 11/08/16 11/08/16 06:00 05:10 01:12 RBC 2.70 L MCV 104.1 H MCH 32.6 H MCHC 31.3 L RDW 17.5 H BUN 39 H Estimated GFR 26 L POC Capillary Glucose 142 H 196 H Total Bilirubin 2.2 H AST 50 H ALT 61 H Total Protein 5.6 L Albumin 3.1 L 11/07/16 11/07/16 11/07/16 20:36 18:49 12:16 RBC MCV MCH MCHC RDW BUN Estimated GFR POC Capillary Glucose 154 H 145 H 160 H Total Bilirubin AST ALT Total Protein Albumin Active Medication Orders Category Date Time Status Acetaminophen [Tylenol] Med 11/08/16 08:00 Active 650 mg PEG Q6H Albuterol Sulf Neb 2.5mg/3ml [Ventolin Inhalation Med 11/06/16 11:35 Active Solution (Dose)] 2.5 mg NEB Q2H PRN Clindamycin 600 mg Premix [Cleocin-D5w 600 mg/50 ml] Med 11/05/16 16:00 Active 600 mg Premix (D5W) 50 ml 1 each IV Q8H Enoxaparin Sodium [Lovenox] Med 10/30/16 09:50 Active 40 mg SUB-Q Q24H Levofloxacin 750 mg/D5w 150 ml [Levaquin IV 750 mg] 750 Med 11/07/16 11:00 Active mg Premix (D5W) 150 ml Bag 1 each IV Q48H Lip [place] [Blistex] Med 11/07/16 02:47 Active 1 each TP PRN PRN Lorazepam [Ativan] Med 11/05/16 15:27 Active 0.25 - 0.5 mg IV Q4H PRN Lorazepam [Ativan] Med 11/07/16 17:43 Active 1 mg PEG Q4H PRN Metoprolol Tartrate [Lopressor] Med 11/06/16 11:31 Active 12.5 mg GT BID Morphine Sulfate Med 11/05/16 11:50 Active 2 - 4 mg IV Q2H PRN Morphine Sulfate Med 11/05/16 11:54 Active 2 - 4 mg IV Q2H PRN Na Phos,M-B/Na Phos,Di-Ba [Fleet Adult Enema] Med 11/01/16 17:29 Active 1 each MO DAILY PRN Pantoprazole Sodium [Protonix] Med 11/06/16 13:00 Active 40 mg IV Q24H Piperacillin-Tazo Premix Bag [Zosyn 3.375 G] 3.375 g Med 11/06/16 13:00 Active Premix (D5W) 50 ml 1 each IV Q6H Quetiapine Fumarate [Seroquel] Med 11/06/16 21:00 Active 25 mg GT BID Sertraline HCl [Zoloft] Med 11/06/16 11:31 Active 25 mg GT BEDTIME Sodium Chloride 0.9% Flush [Normal Saline 10ml Flush] Med 11/04/16 12:06 Active 10 ml IV PRN PRN Sodium Chloride 0.9% Flush [Normal Saline 10ml Flush] Med 11/04/16 17:00 Active 10 ml IV Q8HR Tramadol HCl [Ultram] Med 11/08/16 08:30 Active 100 mg GT Q6H Intake and Output 11/06/16 11/07/16 11/08/16 23:59 23:59 23:59 Intake Total 2220 2321 710 Output Total 673 410 848 Balance 1547 1911 -138 General: No Acute Distress Skin: Normal Color - Left Lower Extremity Incision: Dressing Clean/Dry/Intact, Well Approximated, [place] Intact, No Drainage, No Erythema, No Ecchymosis Capillary Refill: < 3 Seconds - Disposition POD#10 s/p left femoral retrograde IMN for a femoral shaft with distal intra- articular extension WBAT with chai brace locked in extension during PT. Brace removed when patient is at bedrest. Lovenox for DVT. Patient getting up with PT assistance,; cooperation is minimal. Pt continues to refuse oral meds and Peg tube placed yesterday Plan: D/C planning for follow-up in our office in 1 week for possible staple removal Xrays performed on 11.04.2016 show good frx alignment of the femoral shaft Appreciate hospitalist involvement.
[2016-11-08] MEDS: PANTOPRAZOLE SODIUM 40 MG VIAL IV SCH (13:05)
[2016-11-08] MEDS ORDERED: POLYVINYL ALCOHOL 1.4% (TEARS) 300 GTTS/BOT SOLN.DROP OU PRN (15:10)
[2016-11-08] MEDS ORDERED: HALOPERIDOL 1 MG TABLET GT PRN (15:10)
[2016-11-08] MEDS ORDERED: ATROPINE SULFATE 1% 100 GTTS/BOT SOLN.DROP SL PRN (15:10)
--- NOTE | 2016-11-08 15:16 | PDOC36 ---
Provider Note Subject: Family has decided to proceed with comfort care, withdrawing antibiotics and tube feeding. Discussed with both of patient's sons and reviewed POLST form. will change to comfort care and proceed with hospice referral in am.
[2016-11-08] MEDS ORDERED: ACETAMINOPHEN 650 MG SUP PR PRN (19:00)
[2016-11-08] MEDS: SERTRALINE HCL 50 MG TABLET GT SCH (20:42)
[2016-11-09] MEDS: ACETAMINOPHEN 325 MG TABLET PEG SCH ×4 (03:02→20:38)
[2016-11-09] MEDS: TRAMADOL HCL 50 MG TABLET GT SCH ×4 (03:03→20:40)
[2016-11-09] MEDS ORDERED: ENOXAPARIN SODIUM 30 MG/0.3 ML SYRINGE SUB-Q SCH (09:00)
[2016-11-09] MEDS: QUETIAPINE FUMARATE 25 MG TABLET GT SCH ×2 (09:00→20:41)
[2016-11-09] MEDS ORDERED: WATER FOR IRRIG,STERILE 500 ML BOT ONE (09:10)
[2016-11-09] MEDS: MORPHINE SULF Oral Liquid 20 MG/1 ML DOSE GT PRN ×2 (09:14→14:00)
[2016-11-09] MEDS: METOPROLOL TARTRATE 25 MG TABLET GT SCH ×2 (09:16→20:41)
--- NOTE | 2016-11-09 10:37 | PDOC43 ---
- Subjective Chief Complaint: fall with left femur fracture; dementia; postoperative delirium; post-op pneumonia Status continued to decline despite PEG tube feeding and tripple antibiotic treatment for hospital acquires/aspiration pneumonia. Changed to comfort care on 11/08, abx and tube feeding stopped. - Objective Vital Signs Temperature 97.7 F 11/08/16 14:00 Pulse Rate 64 11/08/16 14:00 Respiratory Rate 20 11/09/16 08:00 Blood Pressure 104/44 11/08/16 14:00 O2 Saturation by Pulse Oximetry 94 11/08/16 15:10 Oxygen Delivery Method Simple Mask Oxygen Flow Rate 6 Intake and Output 11/08/16 11/09/16 11/10/16 06:59 06:59 06:59 Intake Total 1540 0 Output Total 976 1750 Balance 564 -1750 General: No Alert, No Acute Distress HEENT: Other (OP dry) Lungs: Other (bilateral ronchi) Cardiovascular: Regular Rate and Rhythm Extremities: No Edema Skin: Other (waxy appearance) Laboratory 11/08/16 05:10 11/08/16 05:10 Current Medications: Current meds reviewed in EMR. - Problems: Assessment/Plan (1) Pneumonia Qualifiers: Pneumonia type: due to unspecified organism Laterality: bilateral Status: AcuteAssessment/Plan: Post operative pna dx'ed 11/05. Presumed bacterial- cx pending. Concern for aspiration given clinical picture but also c/w HCAP. Abx changed on 11/06 to Zosyn/Levaquin/Clinda. With increasing hypoxemic respiratory failure prognosis was felt to be poor and treatment was stopped with transition to comfort care. Hospice referral. (2) Fracture, femur closed, shaft Qualifiers: Encounter type: initial encounter Fracture morphology: oblique Fracture alignment: nondisplaced Laterality: left Qualifier Code: ( S72.335A) Nondisplaced oblique fracture of shaft of left femur, initial encounter for closed fracture Status: AcuteAssessment/Plan: S/P repair in OR 10/29/16. Post-op complicated by delirium and medical issues- see below. (3) Acute blood loss anemia Status: AcuteAssessment/Plan: Stable (4) Dementia Qualifiers: Dementia type: Alzheimer's disease Alzheimer's disease onset: late- onset Dementia behavioral disturbance: without behavioral disturbance Qualifier Code: (G30.1) Alzheimer's disease with late onset Status: Chronic Assessment/Plan: Advanced at baseline with progression in last several months necessitating move to higher level of care 2 weeks prior to admit. No history of behavioral disturbances (did have postop delirium on previously). PEG tube placed after family conference with plan to trial. Failed trial and PEG feeding stopped 11/08. (5) Diastolic CHF Qualifiers: Congestive heart failure chronicity: chronic Qualifier Code: (I50.32) Chronic diastolic (congestive) heart failure Status: ChronicAssessment/Plan : Chronic diagnosis associated with pulmonary HTN. (not Cor [place]). Not on diuretics at home, follow closely and decrease fluid infusion. Suspect the single documented saturation of 83% was an error as it was two minutes after a normal saturation of 92% on Room Air. 11/07 CHF may be contributing to hypoxemia and I/O has been positive, give furosemide IV and follow. 11/08 O2 requirement reduced and lung exam improved with diuresis. (6) Osteopenia Qualifiers: Osteopenia location: multiple sites Qualifier Code: (M85.89) Other specified disorders of bone density and structure, multiple sites Status: ChronicAssessment/Plan: With fragility fracture gives her the diagnosis of osteoporosis. Treatment stopped given prognosis. (7) HLD (hyperlipidemia) Qualifiers: Hyperlipidemia type: mixed hyperlipidemia Qualifier Code: (E78.2) Mixed hyperlipidemia Status: ChronicAssessment/Plan: treatment stopped given prognosis (8) CKD (chronic kidney disease) stage 3, GFR 30-59 ml/min Status: ChronicAssessment/Plan: creatinine increased with diuresis (9) HTN (hypertension) Qualifiers: Hypertension type: essential hypertension Qualifier Code: (I10) Essential (primary) hypertension Status: ChronicAssessment/Plan: Con't metoprolol per GT. VTE Prophylaxis: Lovenox stopped for comfort Disposition: Anticipate ICF with hospice.
[2016-11-09] MEDS: [UNRECOGNIZED DRUG - OTHER] MM PRN ×3 (10:46→20:41)
[2016-11-09] MEDS: SERTRALINE HCL 50 MG TABLET GT SCH (20:39)
[2016-11-10] MEDS: ACETAMINOPHEN 325 MG TABLET PEG SCH ×3 (02:39→14:17)
[2016-11-10] MEDS: TRAMADOL HCL 50 MG TABLET GT SCH ×3 (02:39→15:01)
[2016-11-10] MEDS: QUETIAPINE FUMARATE 25 MG TABLET GT SCH (09:14)
[2016-11-10 09:24] VITALS: BP 116/52
[2016-11-10] MEDS: METOPROLOL TARTRATE 25 MG TABLET GT SCH (09:26)
[2016-11-10] MEDS: MORPHINE SULF Oral Liquid 20 MG/1 ML DOSE GT PRN ×2 (11:43→13:34)
[2016-11-10] MEDS ORDERED: WATER FOR IRRIG,STERILE 500 ML BOT ONE (13:33)
[2016-11-10] MEDS: LORAZEPAM 1 MG TABLET PEG PRN (13:35)
--- NOTE | 2016-11-10 15:21 | DS ---
TALA RANGEL NOEMI DATE OF ADMISSION: October 27, 2016 DATE OF DISCHARGE: November 10, 2016 DISPOSITION: Home to [facility]. DISCHARGE DIAGNOSES: Aspiration pneumonia with acute respiratory failure. OTHER DIAGNOSES: Include: 1. Advanced senile dementia. 2. Left femur fracture status post open reduction internal fixation. 3. Chronic diastolic congestive heart failure. 4. Acute blood loss anemia. 5. Chronic stage 3 kidney disease. 6. Chronic essential hypertension. 7. Chronic pulmonary hypertension. CONSULTATIONS: Included: 1. Orthopedic consultation from Dr. Giovanni Johnson on October 28, 2016. 2. Consultation with Dr. Familia Benton for PEG tube placement. Patient had a PEG tube placed by Dr. Familia Benton. There is no procedure report available, but I believe it was done on November 06, 2016. PROCEDURES: 1. PEG tube placement as mentioned above. 2. Patient also had on October 30, 2016, placement of a retrograde intramedullary nail and percutaneous fixation of the distal femoral intracondylar distal femoral split on October 29, [address] Giovanni Johnson. SUMMARY OF ADMISSION AND HOSPITAL COURSE: The patient is an 89-year-old female admitted after a fall with left leg pain and found to have a fracture of the mid shaft of the left femur. Patient was initially evaluated in the emergency department and referred to the hospitalist service for admission. The patient was admitted to the hospitalist service, felt to be medically stable for operative intervention and underwent the procedure as mentioned above on October 29, 2016. There were no immediate perioperative complications. Patient had a mild acute blood loss anemia with a drop in her hemoglobin to a low of 7.6. She developed some agitation on October 31, 2016 and was started on Seroquel and was treated with low dose lorazepam. She had persistent agitation and behavioral disturbance on November 01, , and 2016. On November 04, 2016, she seemed more sedated and was thought to be due to her scheduled oxycodone so this was adjusted, but her sedation persisted on November 05, 2016, and she was noted to have some hypoxia as well. Chest x-ray was performed showing evidence of bilateral diffuse pulmonary opacities consistent with pneumonia and this was felt to be an aspiration type pneumonia. Her family requested placement of a feeding tube on November 05, 2016, and I consulted with Dr. Benton, and the procedure was performed on November 06, 2016 due to the patient's inability to adequately get nutrition or fluids by mouth and her ongoing agitation complicated by the aspiration pneumonia. On the November 06, 2016, the tube was placed without difficulty and tube feeding was initiated and gradually advanced. Her level of consciousness worsened and on November 06, 2016 her antibiotics were changed from Levaquin monotherapy to Zosyn, Levaquin and clindamycin because of her worsening hypoxic respiratory failure requiring face mask to get adequate oxygenation. On November 08, 2016, the family decided to proceed with comfort care, withdraw antibiotics and tube feedings due to the patient's declining clinical course. Patient's respiratory failure persisted on November 09, 2016 requiring a face mask. She was referred to Hospice who saw the patient and discussed with the family the plan of care on November 10, 2016. Arrangements were made for the patient to discharge home with [facility] on November 10, 2016. PHYSICAL EXAM: VITAL SIGNS: At discharge, her vital signs show temperature 97.7 when last checked, pulse is 65, blood pressure 116/52, respirations 10, oxygen saturation are 97% on five liters by simple mask. DISPOSITION: Home. DISCHARGE CONDITION: Considered terminal. DISCHARGE MEDICATIONS: She is going to stop all of her routine medications and is prescribed: 1. Roxanol 5 to 20 mg by G-tube every four hours as needed for pain. 2. Ativan 0.5 to 4 mg by G-tube every four hours as needed for anxiety, mild nausea or insomnia. 3. Hyoscyamine 0.25 mg tablets one tablet sublingually or by G-tube every three hours for excessive oral secretions. FOLLOWUP: No followup is scheduled as the patient is expected to naturally at home. Cc: Mayra Moran M.D.
== END 2016-11-10 16:25 | disposition hospice, home (50) | DRG 480 ==
LOC: ED 20:54 → MS 22:12
PROVIDERS: ADMIT Family Medicine; ATTEND Family Medicine
PROC: 0QS904Z Reposition Left Femoral Shaft with Internal Fixation Device, Open Approach (ICD-10-PCS; principal; 2016-10-29)
PROC: 0DH63UZ Insertion of Feeding Device into Stomach, Percutaneous Approach (ICD-10-PCS; 2016-11-06)
DX: S72.332A Displaced oblique fracture of shaft of left femur, initial encounter for closed fracture (principal); J69.0 Pneumonitis due to inhalation of food and vomit; I13.0 Hypertensive heart and chronic kidney disease with heart failure and stage 1 through stage 4 chronic kidney disease, or unspecified chronic kidney disease; I50.32 Chronic diastolic (congestive) heart failure; F05 Delirium due to known physiological condition; J95.89 Other postprocedural complications and disorders of respiratory system, not elsewhere classified; F03.90 Unspecified dementia, unspecified severity, without behavioral disturbance, psychotic disturbance, mood disturbance, and anxiety; N18.3 Chronic kidney disease, stage 3 (moderate); D63.1 Anemia in chronic kidney disease; W19.XXXA Unspecified fall, initial encounter; E78.2 Mixed hyperlipidemia; M85.89 Other specified disorders of bone density and structure, multiple sites; R40.2431 Glasgow coma scale score 3-8, in the field [EMT or ambulance]; Z51.5 Encounter for palliative care; Z66 Do not resuscitate; K62.3 Rectal prolapse; M81.0 Age-related osteoporosis without current pathological fracture